=== PATIENT | male | born 1950 | race Caucasian/White ===

== ENCOUNTER 2017-09-25 22:09 | Inpatient (IN) | payer OTHER ==
[~2017-09-25] VITALS: Ht 185.4 cm; Wt 110.2 kg
[2017-09-25 23:13] LABS: BASOPHIL % 0.2 % (0-2); PLATELET COUNT 236 x10^3mcL (130-400); RED CELL DISTRIBUTION WIDTH 14.4 % (11.5-14.5)
[2017-09-25 23:21] LABS: CALCIUM 8.6 mg/dL (8.5-10.1); CARBON DIOXIDE 31.1 mmol/L (21-32); CHLORIDE SERUM 103 mmol/L (98-107); CREATININE SERUM 1.1 mg/dL (0.7-1.3); GLUCOSE SERUM 170 mg/dL (74-106); POTASSIUM SERUM 3.3 mmol/L (3.5-5.1); SODIUM SERUM 140 mmol/L (136-145)
[2017-09-25 23:28] LABS: ALKALINE PHOSPHATASE 129 U/L (46-116); ALT/SGPT 19 U/L (16-63); AST/SGOT 11 U/L (15-37); BILIRUBIN TOTAL 0.3 mg/dL (0.20-1.00); TOTAL PROTEIN, SERUM 7.1 g/dL (6.4-8.2)
[2017-09-25 23:29] LABS: ALBUMIN 3.1 g/dL (3.4-5.0)
[2017-09-26 03:51] VITALS: BP 131/71
[2017-09-26 04:06] LABS: CHOLESTEROL/HDL RATIO 3.3; MAGNESIUM 2.2 mg/dL (1.8-2.4)
[2017-09-26 06:04] VITALS: BP 154/73
[2017-09-26 07:17] LABS: AMPHETAMINE QUAL UR NONE DETECTED (NEG <=1000)
[2017-09-26 07:30] LABS: UA SPECIFIC GRAVITY >=1.030 (1.005-1.035); microscopic required? YES; urine erythrocyte 3+ (NEGATIVE)
[2017-09-26 08:41] VITALS: BP 152/61
[2017-09-26 14:26] VITALS: BP 133/75
[2017-09-26 16:55] VITALS: BP 139/71
[2017-09-26 21:27] VITALS: BP 138/69
[2017-09-27 03:54] LABS: BASOPHIL % 0.3 % (0-2); PLATELET COUNT 213 x10^3mcL (130-400); RED CELL DISTRIBUTION WIDTH 14.3 % (11.5-14.5)
[2017-09-27 04:32] LABS: ALKALINE PHOSPHATASE 113 U/L (46-116); ALT/SGPT 15 U/L (16-63); AST/SGOT 11 U/L (15-37); BILIRUBIN TOTAL 0.16 mg/dL (0.20-1.00); CALCIUM 8.6 mg/dL (8.5-10.1); CARBON DIOXIDE 28.5 mmol/L (21-32); CHLORIDE SERUM 108 mmol/L (98-107); CREATININE SERUM 0.8 mg/dL (0.7-1.3); GFR1 > 60 mL/min; GLUCOSE SERUM 103 mg/dL (74-106); POTASSIUM SERUM 3.9 mmol/L (3.5-5.1); SODIUM SERUM 143 mmol/L (136-145); TOTAL PROTEIN, SERUM 6.6 g/dL (6.4-8.2)
[2017-09-27 04:33] LABS: ALBUMIN 2.7 g/dL (3.4-5.0)
[2017-09-27 05:44] VITALS: BP 144/74
[2017-09-27 05:51] LABS: ERYTHROCYTE SED RATE 36 mm/hr (0-20)
[2017-09-27 19:00] VITALS: BP 157/65
[2017-09-27 21:03] VITALS: BP 149/67
[2017-09-28] VITALS (7 sets, daily range): BP systolic 135–179; BP diastolic 58–89
[2017-09-28 04:24] LABS: RAPID PLASMA REAGIN Non Reactive (Non Reactive)
[2017-09-28 09:14] LABS: RHEUMATOID ARTHRITIS FACTOR <10.0 IU/mL (0.0-13.9)
[2017-09-29 04:52] VITALS: BP 145/92
[2017-09-29 09:44] VITALS: BP 157/79
[2017-09-29 12:01] VITALS: BP 157/79
[2017-09-29 14:10] VITALS: BP 153/77
== END 2017-09-29 15:20 | disposition short-term general hospital (02) | DRG 303 ==
LOC: ED 22:09 → EDBD 22:09 → ED 22:09 → DU 09-26 02:14
PROVIDERS: Emergency Medicine; ADMIT Internal Medicine
DX: I25.119 Atherosclerotic heart disease of native coronary artery with unspecified angina pectoris (principal); I10 Essential (primary) hypertension; Z86.73 Personal history of transient ischemic attack (TIA), and cerebral infarction without residual deficits; Z85.46 Personal history of malignant neoplasm of prostate
CPT/HCPCS: 83880; 86431; A9500; J1644; J2785; J7030; Q0092

== ENCOUNTER 2020-07-13 19:34 | Inpatient (IN) | payer OTHER, SELFPAY ==
[~2020-07-13] VITALS: Ht 185.4 cm; Wt 103.0 kg
--- NOTE | 2020-07-13 19:52 | NUR ---
PT BIB AMBULANCE WITH X2 CIM GUARDS AT BEDSIDE. PER PATIENT INSURANCE CLERK, REPORTS PT HAD SOB ON EXERSTION THIS AFTERNOON AND WAS TESTED POSITIVE FOR COVID ON 07/10/20. PT A/O X4, VERBALLY RESPONSIVE. NO ACUTE DISTRESS NOTED. PT DENIES HAVING PAIN AT THIS TIME. BREATHING EVEN AND UNLABORED. FULL CM AND O2 MONITOR IN PLACE. AWAITING MSE. CIM GUARDS AT BEDSIDE. SAFETY MEASURES IN PLACE. WILL CONTINUE TO MONITOR.
[2020-07-13 20:29] LABS: BASOPHIL % 0.1 % (0-2); PLATELET COUNT 218 x10^3mcL (130-400)
[2020-07-13 20:32] LABS: RED CELL DISTRIBUTION WIDTH 18.3 % (11.5-14.5)
[2020-07-13 20:48] LABS: BILIRUBIN TOTAL 0.44 mg/dL (0.20-1.00); CALCIUM 7.7 mg/dL (8.5-10.1); CARBON DIOXIDE 21.3 mmol/L (21-32); CREATININE SERUM 1.9 mg/dL (0.7-1.3); POTASSIUM SERUM 5.1 mmol/L (3.5-5.1); TOTAL PROTEIN, SERUM 6.9 g/dL (6.4-8.2)
[2020-07-13 20:55] LABS: ALBUMIN 2.6 g/dL (3.4-5.0)
[2020-07-13 21:05] LABS: C REACTIVE PROTEIN 8.2 mg/dL (<=0.9)
--- NOTE | 2020-07-13 21:40 | NUR ---
PT A/O X4 IN [facility] [place] CIM GUARDS AT BEDSIDE. NO ACUTE DISTRESS NOTED. BREATHING EVEN AND UNLABORED. PT DENIES PAIN AT THIS TIME. FULL CM AND O2 MONITOR IN PLACE. PT SPEAKING FULL CLEAR SENTENCES. CALL LIGHT WITHIN REACH. WILL CONTINUE TO MONITOR.
[2020-07-13] MEDS ORDERED: VITB12I PO (22:11)
[2020-07-13] MEDS ORDERED: VERAPAMIL HCL180 M1 PO (22:12)
[2020-07-13] MEDS ORDERED: DOCUSATE SODIU100 MG PO (22:12)
[2020-07-13] MEDS ORDERED: FERROCITE324 MG PO (22:13)
[2020-07-13] MEDS ORDERED: LISINOPRIL40 MG PO (22:14)
[2020-07-13] MEDS ORDERED: PANTOPRAZOLE SO40 M1 PO (22:14)
[2020-07-13] MEDS ORDERED: LIPITOR40 MG PO (22:15)
[2020-07-13] MEDS ORDERED: COREG25 M1 PO (22:15)
[2020-07-13] MEDS ORDERED: QUALITY CHOICE650 M1 PO (22:16)
[2020-07-13] MEDS ORDERED: ALD25 PO (22:16)
[2020-07-13] MEDS ORDERED: DECADRON6 MG PO (22:16)
[2020-07-13] MEDS ORDERED: ASPIRIN FOR CHI81 M1 PO (22:17)
[2020-07-13] MEDS ORDERED: INSULIN SYRING1 EA29 SQ (22:17)
[2020-07-13 22:24] VITALS: BP 136/40
--- NOTE | 2020-07-13 22:37 | NUR ---
REPORT CALLED TO BELTRAN ESPARZA AT EXT [id number].
--- NOTE | 2020-07-13 22:58 | NUR ---
PT RESTING IN RTRYON, A/O X4. NO ACUTE DISRESS NOTED. X2 CIM GUARDS AT BEDSIDE. BREATHING EVEN AND UNLABORED, CONTINUES ON 3LPM O2 VIA N/C WITH NO SOB. PT DENIES HAVING PAIN AT THIS TIME. CM AND O2 MONITOR IN PLACE. PT TRANSFERED VIA [facility] TO ROOM 226B WITH TRANSPORT CM IN PLACE. PT ACCOMPANIED BY STEFAN ESPARZA AND RAH HWANG. BELTRAN ESPARZA TO ASSUME CARE OF PT AT THIS TIME.
--- NOTE | 2020-07-13 23:00 | NUR ---
RECEIVED PT FROM ED [facility] [employer], CAME IN DUE TO SOB. AAOX4. DENIES HEADACHE/DIZZINESS. ABLE TO FOLLOW COMMANDS. SOB NOTED, O2 SAT=92% ON 5LPM/NC. DENIES COUGH. LUNG SOUNDS DIMINISHED ON AUSCULTATION. DENIES CHEST PAIN/PRESSURE, SB W/ MILD ST DEPRESSION. NO EDEMA NOTED. PULSES ARE PALPABLE. DENIES NUMBNESS/TINGLING SENSATION. DENIES ABDOMINAL DISCOMFORT. ABDOMEN IS SOFT. LAST BM WAS 2 DAYS AGO. VOIDS. IV SITE PATENT AND INTACT. SIDE RAILS UPX2. CALL LIGHT ON REACH. PRIMARY NURSE BELTRAN AT BEDSIDE FOR CONTINUITY OF CARE
[2020-07-13 23:21] VITALS: BP 168/44
[2020-07-13 23:53] VITALS: BP 138/40
[2020-07-14] VITALS (7 sets, daily range): BP systolic 131–168; BP diastolic 44–52
--- NOTE | 2020-07-14 00:27 | NUR ---
DR CUI MADE AWARE PATIENT HAS A COPY OF POLST IN THE CHART STATING HE IS A DNR COMFORT MEASURES ONLY, PER DR CUI OKAY TO CHANGE CODE STATUS TO DNR.
--- NOTE | 2020-07-14 00:32 | NUR ---
PATIENT DENIES PAIN. PATIENT ON NC AT 5L/MIN, NO SOB NOTED, O2SAT OF 92% NO SOB NOTED. ALL PRECAUTIONS IN PLACE. GUARDS AT DOOR. WILL MONITOR.
--- NOTE | 2020-07-14 00:52 | NUR ---
RECEIVED A CALL FROM DR FLETCHER, UPDATED ON PATIENTS CONDITION. NEW ORDERS RECEIVED AND CARRIED OUT.
[2020-07-14 02:26] LABS: CHOLESTEROL/HDL RATIO 5.2
--- NOTE | 2020-07-14 05:48 | NUR ---
PATIENT SLEPT MOST OF THE NIGHT WITH NO ACUTE DISTRESS. PATIENT CONTINUE TO BE ON NC 5L/MIN WITH O2SAT OF 94% NO SOB NOTED. PATIENT DENIES CHEST PAIN/PRESSURE. IV PATENT, FLUSHED WELL. PATIENT ABLE TO TURN AND REPOSITION SELF. UNABLE TO COLLECT URINE SAMPLE AT THIS TIME PATIENT VERBALIZED UNDERSTANDING OF NEED TO USE URINAL TO OBTAIN SAMPLE FOR UA/UDS/UCX. PATIENT EDUCATION PROVIDED REGARDING CONVALESCENT PLASMA ORDERED AND AGREES TO TREATMENT, CONSENT SIGNED BY PATIENT, ALL QUESTIONS ADDRESSED. ALL NEEDS MET, ALL SAFETY PRECAUTIONS IN PLACE. MEDICATED PER EMAR. GUARD AT DOOR. WILL CONTINUE TO MONITOR.
--- NOTE | 2020-07-14 07:11 | NUR ---
PATIENT IN NO ACUTE DISTRESS. ENDORSED CARE TO PORSHA ESPARZA, ALL QUESTIONS ADDRESSED.
[2020-07-14 07:22] LABS: CALCIUM 8.1 mg/dL (8.5-10.1); CARBON DIOXIDE 19.1 mmol/L (21-32); CREATININE SERUM 1.7 mg/dL (0.7-1.3); POTASSIUM SERUM 5.4 mmol/L (3.5-5.1)
--- NOTE | 2020-07-14 07:45 | NUR ---
RECIEVED PT FROM ORTHO ASSISTANT NURSE. PT SLEEPING, AROUSABLE TO VOICE. A/O X4, CALM AND COOPERATIVE. TELE #9, BRADYCARDIC, HR:50. PT ON 5L NC, BREATHING EVEN/UNLABORED, O2 SAT 99%. PT REPORTS NO SOB OR PAIN AT THIS TIME. IV TO RAC PATENT, DRESSING CDI. WILL CONT TO MONITOR.
[2020-07-14 08:00] LABS: PLATELET COUNT 199 x10^3mcL (130-400)
[2020-07-14 08:28] LABS: BASOPHIL % 0 % (0-2); RED CELL DISTRIBUTION WIDTH 18.2 % (11.5-14.5)
--- NOTE | 2020-07-14 09:14 | NUR ---
PT SLEEPING, AROUSABLE TO VOICE. PASSED MORNING MEDICATIONS, TOLERATED WELL. PT ON 5 L NC, BREATHING EVEN/UNLABORED. 02 SAT 98%. PT ENCOURAGED TO DRINK MORE WATER, AWARE OF NEED TO COLLECT URINE FOR URINE TESTS. ALL NEEDS MET. WILL CONT TO MONITOR.
--- NOTE | 2020-07-14 09:38 | NUR ---
CALLED BLOOD BANK REGARDING ORDERED 1 UNIT OF CONVALESCENT PLASMA. PER BLOOD BANK, WILL CALL BACK WHEN THE 1 UNIT IS READY FOR PICKUP. AWAITING CALL BACK.
--- NOTE | 2020-07-14 11:06 | NUR ---
PT DESAT TO 81%, NASAL CANNULA WAS NOT ON PROPERLY. ENCOURAGED PT TO CHECK IF NASAL CANNULA IS IN PLACE OFTEN. PT 02 SAT IS NOW 90%, BREATHING EVEN/UNLABORED, ON 5L NC. PT REPORTS NO PAIN AT THIS TIME. ALL NEEDS MET. GUARDS AT DOOR. WILL CONT TO MONITOR.
--- NOTE | 2020-07-14 12:01 | NUR ---
COLLECTED URINE SPECIMEN FOR URINE TESTS. SPECIMEN DROPPED OFF IN LAB BIN.
[2020-07-14 12:12] LABS: ALBUMIN 2.6 g/dL (3.4-5.0); BILIRUBIN DIRECT 0.08 mg/dL (0.0-0.2); BILIRUBIN TOTAL 0.33 mg/dL (0.20-1.00); TOTAL PROTEIN, SERUM 7.1 g/dL (6.4-8.2)
--- NOTE | 2020-07-14 12:32 | NUR ---
SPOKE WITH DR. CUI REGARDING PT'S POTASSIUM LEVEL OF 5.4. PER DR. CUI, OKAY TO ORDER 1 PACKET OF LOKELMA PO ONCE. WILL INPUT ORDERS ACCORDINGLY.
[2020-07-14 12:42] LABS: UA SPECIFIC GRAVITY 1.025 (1.005-1.035); microscopic required? YES; urine erythrocyte TRACE (NEGATIVE)
--- NOTE | 2020-07-14 12:57 | NUR ---
ADMINISTERED LOKELMA, PT TOLERATED WELL. PT ON 5L NC, OS SAT 95%, BREATHING EVEN/UNLABORED, IN NO ACUTE RESP DISTRESS. SPOKE WITH PHARMACIST SHIVANI FULTONDESIVIR TO BE STARTED AT 1400. WILL CONT TO MONITOR.
[2020-07-14 13:12] LABS: AMPHETAMINE QUAL UR NONE DETECTED (See below)
--- NOTE | 2020-07-14 14:30 | NUR ---
1ST DOSE OF REMDESIVIR COMPLETE. PT ON 5L NC, BREATHING EVEN/UNLABORED. PT REPORTS NO PAIN OR SOB. ALL NEEDS MET. WILL CONT TO MONITOR.
--- NOTE | 2020-07-14 16:21 | NUR ---
CONVALESCENT PLASMA TRANSFUSION INITIATED AT 1550. 2 RN VERIFICATION DONE AT BEDSIDE WITH ANTOINETTE ESPARZA. PRE-TRANSFUSION VITAL SIGNS ARE T:97.4, BP:150/49, P:60, RR:20, 02:93%. PT INSTRUCTED TO LET NURSE KNOW IMMEDIATELY IF FEELING ANY CHILLS, ITCHING, FEVER, SOB, OR BODY ACHES. INFUSION RAN AT 70 ML/HR. 15 MIN VITAL SIGNS TAKEN AT 1605, T: 97.1, BP:145/47, P:58, RR: 20, O2:93%. PT EXHIBITED NO SIGNS/SYMPTOMS OF TRANSFUSION REACTION. INFUSION INCREASED TO 150ML/HR. ENCOURAGED PT TO USE CALL LIGHT WHEN NURSE IS NEEDED, PT EXPRESSED UNDERSTANDING. GUARDS AT DOOR. WILL CONT TO MONITOR.
--- NOTE | 2020-07-14 17:29 | NUR ---
1 UNIT CONVALESCENT PLASMA INFUSION COMPLETE. VSS, PT EXHIBITED NO SIGNS OF TRANSFUSION REACTION. PT ON 5 L NC, BREATHING EVEN/UNLABORED, O2 SAT 93%. PT REPORTS NO PAIN OR SOB AT THIS TIME. ALL NEEDS MET. WILL CONT TO MONITOR.
--- NOTE | 2020-07-14 18:45 | NUR ---
PT DESAT TO 87%. PT STATES THAT HE WAS EATING, ENCOURAGED PT TO KEEP NASAL CANNULA ON WHILE EATING AND TO TAKE DEEP BREATHS THROUGH THE NOSE. PT ON 5 L NC, BREATHING EVEN/UNLABORED. PT REPORTS NO PAIN OR SOB AT THIS TIME. IV TO RAC PATENT, SALINE LOCKED, DRESSING CDI. ALL QUESTIONS/CONCERNS ADDRESSED. WILL ENDORSE TO AUTOMOBILE SALESMAN NURSE.
--- NOTE | 2020-07-14 20:11 | NUR ---
PT RECIEVED AAO REG RESP NO SOB ON 5L N/C SAT 95%,HOB,V/S STABLE,ABDO IS SOFT WITH ACTIVE BOWEL SOUNDS,PT HAS HL TO THE RT HAND WITH THE SITE PATENT AND INTACT,HOB,KEPT CLEAN AND DRY TO TOUCH,BED IN THE LOW POSITION AND LOCKED AND MADE COMFORTABLE IN BED AND WILL CONTINUE TO MONITOR.
--- NOTE | 2020-07-15 03:20 | NUR ---
PT SLEEPING SOUNDLY AND WILL CONTINUE TO MONITOR.
[2020-07-15 04:26] VITALS: BP 106/55
--- NOTE | 2020-07-15 06:47 | NUR ---
[facility],WILL CONTINUE TO MONITOR.
[2020-07-15 07:04] LABS: BASOPHIL % 0.1 % (0-2)
[2020-07-15 07:13] LABS: RED CELL DISTRIBUTION WIDTH 18.6 % (11.5-14.5)
[2020-07-15 07:14] LABS: PLATELET COUNT 257 x10^3mcL (130-400)
[2020-07-15 07:34] LABS: CALCIUM 8.3 mg/dL (8.5-10.1); CREATININE SERUM 1.6 mg/dL (0.7-1.3); POTASSIUM SERUM 5.1 mmol/L (3.5-5.1)
--- NOTE | 2020-07-15 07:45 | NUR ---
RECEIVED PATIENT RESTING IN BED, NO ACUTE DISTRESS NOTED. PATIENT AAOX4, DENIES HEADACHE. TELE MONITOR IN PLACE, DENIES CP. PULSES PALPABLE X4, DENIES N/V. LUNG SOUNDS DIMINISHED TO WANDA BASES, DENIES SOB ON 5L NC. PATIENT VOIDS FREELY USING URINAL. IV TO RAC SALINE LOCK, CDI&PATENT. CIM ZHOU OUTSIDE OF ROOM FOR SAFETY PRECAUTION. CALL LIGHT WITHIN REACH, BED IN LOW POSITION, WILL CONTINUE TO MONITOR.
--- NOTE | 2020-07-15 07:57 | NUR ---
PATIENTS STARTED TO DESATURATE TO THE LOW 80s, PATIENT BREATHING LABORED. PATIENT REPORTS SOB, INCREASED PATIENTS OXYGEN TO 6L NC. PATIENT OXYGEN WAS 88%. ATTEMPTED TO EDUCATED PATIENT ON PRONING SELF THIS WILL INCREASE OXYGENATION. PATIENT REFUSED AND STATED HE DIDNT WANT TOO, RT WAS NOTIFIED FOR BREATHING TREATMENT. WILL CONTINUE TO MONITOR.
--- NOTE | 2020-07-15 08:14 | NUR ---
RT AT BEDSIDE, PATIENT RECEIVED BREATHING TREATMENT. PATIENT WAS SWITCHED TO OXYMIZER 10L SATING AT 96-97%. PATIENT REPORTS FEELING BETTER AFTER BREATHING TREATMENT, WILL CONTINUE TO MONITOR.
[2020-07-15 08:27] VITALS: BP 169/53
--- NOTE | 2020-07-15 10:40 | NUR ---
DR. CUI MADE AWARE PATIENTS BP WAS 169/53, DR. CUI GAVE TORB TO CONTINUE LISINOPRIL 40MG PO DAILY, COREG 50MG PO DAILY, SPIROLACTONE 50MG PO DAILY, VERAPAMIL 180MG PO DAILY. WILL CARRY OUT ORDERS AT THIS TIME.
[2020-07-15 11:48] LABS: ALT/SGPT 29 U/L (16-63); AST/SGOT 29 U/L (15-37)
[2020-07-15 11:54] VITALS: BP 126/40
--- NOTE | 2020-07-15 13:48 | NUR ---
DR. CUI MADE AWARE PATIENT K WAS 5.1, PER DR. BASILIA LARSON TO CONTINUE SPIROLACTONE PO 50MG DAILY. PHARMACIST MADE AWARE.
--- NOTE | 2020-07-15 16:27 | NUR ---
PATIENT RESTING IN BED, NO ACUTE DISTRESS NOTED. PATIENT DENIES SOB, BREATHING E/U ON 10L OXYMIZER. PATIENT REPORTS THE OXYMIZER HAS HELPED. PATIENT DENIES PAIN AT THIS TIME. ALL NEEDS MET, CALL LIGHT WITHIN REACH, BED IN LOW POSITION. WILL CONTINUE TO MONITOR.
[2020-07-15 17:04] VITALS: BP 111/33
--- NOTE | 2020-07-15 19:25 | NUR ---
ALL CARE ENDORSED TO NIGHT RN.
--- NOTE | 2020-07-15 20:00 | NUR ---
RECEIVED PT FROM DAY SHIFT RN. PT AOX4 ON 9L OXYGEN VIA OXIMIZER. PT DENIES ANY PAIN AT THIS TIME. IVL TO RIGHT AC IS CLEAN AND INTACT. CALL LIGHT IS WITHIN REACH AND PT ABLE TO USE. BED IS IN LOW POSITION. NO ACUTE DISTRESS NOTED. PT ENCOURAGED TO CALL FOR ASSISTANCE. WILL MEDICATE PER EMAR AND MONITOR PT THROUGHOUT THE SHIFT.
[2020-07-15 20:53] VITALS: BP 116/49
[2020-07-15 22:20] VITALS: BP 117/34
[2020-07-16 05:42] VITALS: BP 128/43
--- NOTE | 2020-07-16 07:01 | NUR ---
PATIENT SLEEPING MOST OF THE NIGHT WITH NO ACUTE DISTRESS NOTED. HR IN THE 40s ALL NIGHT AND PT IS ASYMPTOMATIC. WILL PASS REPORT TO INCOMING DAYS SHIFT RN FOR CONTINUITY OF CARE.
--- NOTE | 2020-07-16 07:34 | NUR ---
RECEIVED PATIENT RESTING IN BED, NO ACUTE DISTRESS NOTED. PATIENT AAOX4, DENIES HEADACHE. TELE MONITOR IN PLACE, DENIES CHEST PAIN. PULSES PALPABLEX4, NO EDEMA NOTED. PATIENT DENIES SOB, BREATHING E/U ON 9L OXYMIZER. PATIENT VOIDS FREELY USING URINAL. IV TO RAC SALINE LOCK, CDI&PATENT. [facility] Z[facility] X2 FOR SAFETY PRECAUTION. CALL LIGHT WITHIN REACH, BED IN LOW POSITION, WILL CONTINUE TO MONITOR.
[2020-07-16 07:38] LABS: BASOPHIL % 0 % (0-2); RED CELL DISTRIBUTION WIDTH 18.1 % (11.5-14.5)
[2020-07-16 08:08] LABS: BILIRUBIN TOTAL 0.35 mg/dL (0.20-1.00); CALCIUM 7.9 mg/dL (8.5-10.1); CARBON DIOXIDE 21.7 mmol/L (21-32); CREATININE SERUM 1.7 mg/dL (0.7-1.3); POTASSIUM SERUM 4.6 mmol/L (3.5-5.1); TOTAL PROTEIN, SERUM 7.6 g/dL (6.4-8.2)
[2020-07-16 08:13] LABS: ALBUMIN 2.5 g/dL (3.4-5.0)
[2020-07-16 08:15] LABS: MAGNESIUM 3.1 mg/dL (1.8-2.4); PHOSPHOROUS 5.1 mg/dL (2.5-4.9)
[2020-07-16 08:44] VITALS: BP 125/80
--- NOTE | 2020-07-16 11:55 | NUR ---
DR. CUI AWARE PATIENT BUN/CR WAS 83.0/1.7. NO FURTHER ORDERS AT THIS TIME.
[2020-07-16 12:05] VITALS: BP 136/40
[2020-07-16 12:12] LABS: PLATELET COUNT 248 x10^3mcL (130-400)
--- NOTE | 2020-07-16 14:00 | NUR ---
REMDESIVIR IV GIVEN AT THIS TIME, NO ADVERSE REACTION NOTED. PATIENT DENIES SOB, BREATHING E/U ON 9L OXYMIZER. ALL NEEDS MET AT THIS TIME, CALL LIGHT WITHIN REACH, BED IN LOW POSITION, WILL CONTINUE TO MONITOR.
[2020-07-16 16:34] VITALS: BP 126/37
--- NOTE | 2020-07-16 17:53 | NUR ---
DR. MARIN AT BEDSIDE, SPOKE WITH PATIENT REGARDING PLAN OF CARE. PATIENT VERBALIZED UNDERSTANDING, NO ACUTE RESPIRATORY DISTRESS, PATIENT DENIES SOB. ALL NEEDS MET AT THIS TIME, CALL LIGHT WITHIN REACH, BED IN LOW POSITION. WILL CONTINUE TO MONITOR.
--- NOTE | 2020-07-16 19:15 | NUR ---
PATIENT IS STABLE, NO ACUTE CHANGES NOTED THROUGHOUT SHIFT. ALL CARE ENDORSED TO NIGHT RN, ALL QUESTIONS AND CONCERNS ADDRESSED.
--- NOTE | 2020-07-16 19:59 | NUR ---
RECEIVED PT FROM DAY SHIFT RN. PT IS AOX4, ON 9L OXIMIZER AND SATING AT 97%. PT DENIES PAIN AT THIS TIME. CALL LIGHT IS WITHIN REACH AND PT ENCOURAGED TO CALL FOR ASSISTANCE. WILL ASSESS AND MONITOR THROUGHOUT THE SHIFT.
[2020-07-16 20:59] VITALS: BP 141/82
[2020-07-17 06:16] VITALS: BP 142/36
--- NOTE | 2020-07-17 06:51 | NUR ---
PT SLEEPING ALL NIGHT WITH NO COMPLAINTS. OXYGEN SATURATING BETWEEN 90-94% ON 6L OXIMIZER. WILL PASS REPORT TO INCOMING DAY SHIFT RN FOR CONTINUITY OF CRAE.
[2020-07-17 06:54] LABS: BASOPHIL % 0.1 % (0-2); PLATELET COUNT 256 x10^3mcL (130-400)
[2020-07-17 07:01] LABS: RED CELL DISTRIBUTION WIDTH 18.4 % (11.5-14.5)
[2020-07-17 07:38] LABS: BILIRUBIN TOTAL 0.6 mg/dL (0.20-1.00); CARBON DIOXIDE 21.8 mmol/L (21-32); CREATININE SERUM 1.6 mg/dL (0.7-1.3); POTASSIUM SERUM 4.7 mmol/L (3.5-5.1)
[2020-07-17 07:53] LABS: ALBUMIN 2.4 g/dL (3.4-5.0)
[2020-07-17 08:20] VITALS: BP 136/61
[2020-07-17 12:05] VITALS: BP 148/59
--- NOTE | 2020-07-17 15:55 | NUR ---
Initial Nutrition Assessment: 226B JING, DENIS 69M MR Dx: COVID, PNA, NSTEMI PMHx: HTN, CVA PSHx: none noted Labs: (07/17) WBC 15.6H, H/H 12.9/39L, BUN 88H, Cr 1.6H, Albumin 2.4L, (07/16) Phosphorus 5.1H, Mg 3.1H, (07/13) CRP 8.2H, Trig 212H, HDL 32L Meds: Isordil, Apresoline, Lipitor, Remdesevir, Lovenox, Colace, Aspirin, Decadron, Coreg Diet: Cardiac diet PO intake since admission: (07/17) B:80%, L: 60%, (07/16) B: 100% (07/15) L: 60%, (07/14) B: 100%; av% Ht: 185.42cm/73in Wt: 102.965kg/227lbs BMI: 29.9 Bed scale: not accessible IBW: 83.64kg/184lbs %IBW: 123.11% UBW: unknown Age: 69 Food Allergies: unknown Edema: none noted Last BM: 07/15 Skin: skin intact, no open wound noted Alex: 21 Per H and P (07/13) pt is a 69 yo male h/o CVA, HTN prostate CA, [facility] resident who was exposed to cov 19, tested positive 3 days ago. He started having sob since then, progressively worsen during the period. He was taken to the ed, sob, positive troponin and with b infiltrates on cxr. He was admitted to [facility], isolation. Pt was admitted with dx: Hypoxia, CAD, COVID 19, PNA, positive troponin, HTN, h/o CVA, prostate CA, PARTHA/CKD, Obstructive uropathy RD Note (07/17/2020) Per progress note (07/16), pt had no new complaints and remained on 10L oxymizer. D/t pt being in isolation, and no bedside phone available, assessment was completed relied on medical records and RN. Per RN, pt had 80% breakfast and 60% lunch today. Pt did not have c/o chewing/swallowing difficulty or GI distress. No BM was reported. Problem with: N/V/D/C: none noted Problems with: Chewing: Swallowing: none per RN Current appetite: Fair per RN Recent wt change: unknown %wt change: unknown Height: unknown Vitamin/Supplement use: unknown Special diet at home: unknown Physical activity: unknown Nutrition education given (specify specific nutrition education and handout given): not given at this time Food-drug interactions? Education given? n/a Estimated Nutritional Needs Based on ideal body weight (84kg) Energy: 2289-6419 kcal/day (30-35 kcal/kg for respiratory distress, viral infection) Protein: 100-126 g/day (1.2-1.5 g/kg for respiratory distress, viral infection) Fluid: 9581-1305 mL/day (1 mL/kcal) Nutrition Diagnosis: 1. Increased energy and protein needs r/t viral infection a/e/b pt was admitted with respiratory distress and COVID. Intervention 1. Continue with cardiac diet as tolerate 2. Recommend ensure high protein BID to aid PO intake and to meet kcal and protein needs. It will provide additional 320kcal and 32g protein. Monitor/Evaluate Goal: PO intake at least 75% of estimated needs Monitor: PO intake, Labs, GI function, ONS intake F/U in 3-5 days as moderate risk 07/20-7
[2020-07-17 16:27] VITALS: BP 129/35
--- NOTE | 2020-07-17 17:00 | NUR ---
PATIENT AOX4, REMAIN AFEBRILE, HR COULD GO DOWN TO THE 50'S, HELD MORNING CARVEDILOL. PATINET IS ON 6 L OXYGENT VIA NASAL CANULA, DENIES SHORTNESS OR BREATH OR RESPIRATORY DISTRESS. IV REMDESIVIR DOSE 3 OF 4 GIVEN. WILL CONTINUE TO WEAN O2 AND MONITOR LABS.
[2020-07-17 20:00] VITALS: BP 146/36
--- NOTE | 2020-07-17 20:00 | NUR ---
20:00 Patient is AAO, follows commands well. Patient is an inmate, security guards are present. On 6liters oximizer. Sat wnl. Cardiac telemetry is showing NSR , rate 60. BP WDL. No complaints of pain. Abdomen is soft and non-distended. voiding QS.
--- NOTE | 2020-07-17 23:57 | NUR ---
23:55 Patient is resting well. No respiratory distress noted. No complaints of pain.
--- NOTE | 2020-07-18 04:59 | NUR ---
04:58 Patient has no respiratory distress. No complaints of pain.
[2020-07-18 05:26] VITALS: BP 150/36
--- NOTE | 2020-07-18 07:52 | NUR ---
RECIEVED PT FROM TUBE FITTER NURSE. PT RESTING IN HIGH-FOWLERS, A/O X4, CALM ADN COOPERATIVE. TELE #9, SR. PT ON 6 L OXYMIZER, O2 SAT 94%, BREATHING EVEN/UNLABORED. IN NO ACUTE RESP DISTRESS AT THIS TIME. PT REPORTS NO PAIN. IV TO R WRIST PULLED OUT, WILL INSERT NEW IV. WILL CONT TO MONITOR.
[2020-07-18 08:55] VITALS: BP 145/26
--- NOTE | 2020-07-18 09:59 | NUR ---
NEW IV INSERTED 22 G IN RA, PATENT, DRESSING CDI.
[2020-07-18 12:37] VITALS: BP 125/34
--- NOTE | 2020-07-18 14:21 | NUR ---
PT RESTING IN HIGH FOWLERS, SLEEPING, EASILY AROUSABLE TO VOICE, A/O X4. PT ON 10 L OXYMIZER, BREATHING EVEN/UNLABORED, IN NO ACUTE RESP DISTRESS. REMDESIVIR GIVEN. PT REPORTS NO PAIN AT THIS TIME. ALL NEEDS MET. WILL CONT TO MONITOR.
[2020-07-18 16:24] VITALS: BP 113/60
--- NOTE | 2020-07-18 17:58 | NUR ---
PT RESTING IN SEMI-FOWLERS, A/O X4, LETHARGIC. PT ON 10 L OXYMIZER, BREATHING EVEN/UNLABORED, IN NO ACUTE RESP DISTRES AT THIS TIME. IV TO RFA PATENT, DRESSING CDI. PT REPORTS NO PAIN AT THIS TIME. ALL NEEDS MET. GUARDS AT DOOR, WILL CONT TO MONITOR.
[2020-07-18 19:56] VITALS: BP 130/34
--- NOTE | 2020-07-18 20:00 | NUR ---
RECEIVED PT AA&O.SOMEWHAT QUIET. INMATE WITH OFFICERS NEAR BEDSIDE. OXYMIZER @10L. DESATS WHEN HE REMOVES IT INTO THE 80'S. OTHERWISE AROUND 94%.NO RESPIRATORY DISTRESS NOTED. USING URINAL. SHACKLED TO BED FROM LEFT ANKLE. SKIN CLEAR UNDER SHACKLE.ABLE TO TURN AND MOVE HIMSELF IN BED. NO C/O PAIN. IV TO TABITHA PATENT, AND SALINE LOCKED. BED LOW AND CALL LIGHT WITHIN REACH.
--- NOTE | 2020-07-19 01:33 | NUR ---
CHECKED ON PT. OXYGEN SAT WAS IN THE 80'S. PT HAD OXYMIZER OFF TO THE SIDE OF HIS FACE. INSTRUCTED HIM TO PLACE OXYMIZER IN CORRECTLY. O2 SAT WENT BACK UP TO 94%. NO RESPIRATORY DISTRESS NOTED. PT RESTING IN BED.
[2020-07-19 04:57] VITALS: BP 177/42
--- NOTE | 2020-07-19 05:13 | NUR ---
PT'S OXYGEN DESAT'S IN THE 80'S AT TIMES. CHECKED ON HIM AND HE WAS SLIGHTLY SOB SITTING UP IN BED. RT NOTIFIED. BUMPED HIS OXYMIZER UP TO 12L. SUSTAINING AROUND 90% O2.NO DISTRESS NOTED . PT IRRITABLE WHEN COMING IN AND OUT TO CHECK ON HIM. CALL LIGHT WITHIN REACH, BED IN LOWEST POSITION. INSTRUCTED TO USE HIS CALL LIGHT IF FEELING SOB OR RESPIRATORY DISTRESS. VERBALIZED UNDERSTANDING.
[2020-07-19 06:23] VITALS: BP 127/47
[2020-07-19 06:59] LABS: PLATELET COUNT 243 x10^3mcL (130-400)
[2020-07-19 07:24] LABS: CALCIUM 8.4 mg/dL (8.5-10.1); CARBON DIOXIDE 22.8 mmol/L (21-32); CREATININE SERUM 1.6 mg/dL (0.7-1.3); POTASSIUM SERUM 4.9 mmol/L (3.5-5.1)
[2020-07-19 07:28] LABS: BASOPHIL % 0 % (0-2); RED CELL DISTRIBUTION WIDTH 18.5 % (11.5-14.5)
--- NOTE | 2020-07-19 07:28 | NUR ---
REPORT TAKEN FROM TEST BORE HELPER NURSE AT STATION DUE TO COVID ISOLATION. PER REPORT PATIENT IS AWAKE AND ALERT AND IN NO ACUTE DISTRESS. ON 12 LITERS OXYMIZER AT THIS TIME WITH O2 SAT OF 97% AND HR OF 57. WILL CONTINUE TO MONITOR.
[2020-07-19 09:48] VITALS: BP 136/68
[2020-07-19 12:25] VITALS: BP 125/45
[2020-07-19 17:00] VITALS: BP 135/39
--- NOTE | 2020-07-19 19:13 | NUR ---
REPORT GIVEN TO NIP WRAPPER, CARE ENODRSED
--- NOTE | 2020-07-19 20:00 | NUR ---
RECEIVED PT AA&0.OXYMIZER 12L, SATURATION 94-97%. NO RESPIRATORY DISTRESS NOTED. IV PATENT AND SALINE LOCKED. INMATE, SHACKLES TO LEFT ANKLE AND OFFICERS CLOSE BY AT ALL TIMES. SKIN CLEAR. WATER GIVEN. NO DISTRESS NOTED.CALL LIGHT WITHIN REACH.
[2020-07-19 20:33] VITALS: BP 139/37
[2020-07-20 05:11] VITALS: BP 143/34
--- NOTE | 2020-07-20 06:49 | NUR ---
PT RESTING. CONTINUES ON THE OXYMIZER 12L. PT WOULD SHOW HE WAS DESATING IN THE 80'S AT TIMESAND WHEN CHECKED HAD REMOVED HIS OXYMIZER. COMPLIANT WHEN ASKED TO PLACE IT BACK ON AND O2 GOES UP TO 94-97%. NO RESPIRATORY DISTRESS NOTED WHILE LYING IN BED. NO C/O PAIN. WILL ENDORSE TO AM NURSE
[2020-07-20 07:11] LABS: CALCIUM 8.5 mg/dL (8.5-10.1); CARBON DIOXIDE 20.9 mmol/L (21-32); CREATININE SERUM 1.4 mg/dL (0.7-1.3); POTASSIUM SERUM 5.3 mmol/L (3.5-5.1)
[2020-07-20 07:15] LABS: BASOPHIL % 0.7 % (0-2); PLATELET COUNT 252 x10^3mcL (130-400); RED CELL DISTRIBUTION WIDTH 18.4 % (11.5-14.5)
--- NOTE | 2020-07-20 07:15 | NUR ---
RECEIVED PT FROM NIGHT RN. PT RESTING IN BED WITHOUT APPARENT DISTRESS. AAOX4, APPROPRIATE CONVERSATION W SPEECH CLEAR NOTED. DENIES GARY/DIZZINESS. RES EVEN AND SLIGHTLY LABORED. O2 SAT 98% ON 12 L OXYMIZER, DECREASED TO 10L AND O2 SATURATION SUSTAINED AT 96%. DENIES SOB. PRODUCTIVE COUGH NOTED. TELE MONITOR 9 SR, DENIES CP/PRESSURE. NO GI/ COMPLAINT. DENIES PAIN/DISCOMFORT AT THIS TIME. NO ACUTE DISTRESS NOTED. IV SITE TO TABITHA BARRETO W NO S/S OF INFILTRATION NOTED. SAFETY PRECAUTIONS IN PLACE.
[2020-07-20 08:30] VITALS: BP 123/35
--- NOTE | 2020-07-20 09:00 | NUR ---
RT INCREASED 02 TO 12L OXYMIZER. O2 SAT 88-89% ON 10 L AND PT C/O SOB PER RT. O2 SAT 94% ON 12L OXYMIZER
--- NOTE | 2020-07-20 12:48 | NUR ---
DR CUI MADE AWARE OF K+ LEVEL 5.3
[2020-07-20 13:00] VITALS: BP 132/36
[2020-07-20 14:00] VITALS: Ht 185.4 cm; Wt 103.0 kg
[2020-07-20 18:00] VITALS: BP 123/34
--- NOTE | 2020-07-20 18:47 | NUR ---
PT RESTING IN BED WITHOUT APPARENT DISTRESS. NO SIGNIFCANT CHANGES NOTED. RES E/U, DENIES SOB ON 12 L OXYMIZER. WILL ENDORSE TO NEXT SHIFT
[2020-07-20 20:37] VITALS: BP 147/33
--- NOTE | 2020-07-20 21:14 | NUR ---
Pt received in bed, sleeping On 12 L oxymizer, no signs of respiratory distress noted Condition fair Denied pain or discomfort
[2020-07-21] VITALS (7 sets, daily range): BP systolic 108–160; BP diastolic 34–72
--- NOTE | 2020-07-21 | NUR ---
Pt in bed sleeping No signs of distress All needs met
--- NOTE | 2020-07-21 06:07 | NUR ---
Pt slept overnight, condition fair All due care rendered, no signs of distress noted No SOB or respiratory distress Oxygen requirement unchanged, 12L via oxymizer Voided Officer watching pt in hallway, shackle to left foot
[2020-07-21 07:47] LABS: PLATELET COUNT 307 x10^3mcL (130-400)
[2020-07-21 07:55] LABS: CALCIUM 9.1 mg/dL (8.5-10.1); CARBON DIOXIDE 26.6 mmol/L (21-32); CREATININE SERUM 1.5 mg/dL (0.7-1.3)
[2020-07-21 07:59] LABS: POTASSIUM SERUM 5.7 mmol/L (3.5-5.1)
[2020-07-21 08:11] LABS: BASOPHIL % 0 % (0-2); RED CELL DISTRIBUTION WIDTH 18.3 % (11.5-14.5)
--- NOTE | 2020-07-21 11:08 | NUR ---
PATIENT IS LOCX4. STATED NO PAIN OR DISCOMFORT. NO SIGNS OF DISTRESS. WILL CONTINUE TO MONITOR.
--- NOTE | 2020-07-21 12:19 | NUR ---
PATIENTS O2 DROPPED TO 78% WENT TO CHEK IN ON THE PATIENT, PATIENT HAD GOTTEN UP TO USE URINAL.
--- NOTE | 2020-07-21 12:26 | NUR ---
RECHECKED O2 BACK TO 90% ON 12L
--- NOTE | 2020-07-21 12:53 | NUR ---
INFORMED DR CUI ABOUT PATIENTS LABS. SERUM POTASSIUM 5.7. BUN 101. CREATINE 1.5. WBC 16.0
--- NOTE | 2020-07-21 13:59 | NUR ---
LOKELMA SODIUM WAS GIVEN TO TREAT HIGH POTASSIUM PER MD ORDER.
--- NOTE | 2020-07-21 17:38 | NUR ---
PATIENTS O2 95, LAYING IN BED HIGH FOWLERS, NO SIGNS OF DISTRESS AT THIS MOMENT. 0/10 PAIN AND NO DISCOMFORT. ALL NEEDS ARE MET.
--- NOTE | 2020-07-21 20:30 | NUR ---
RECEIVED PT FROM DAY SHIFT NURSE, PT IS RESTING IN BED AWAKE AND ALERT. TELE 9, SR-SB. NO C/O CHEST PAIN/PRESSURE, DIZZINESS, GARY, N/V OR PALPITATIONS. PALPABLE PULSES, NO EDEMA NOTED. BREATHING IS EVEN AND UL ON 12L OXIMIZER, LUNG SOUNDS DIMINISHED BILATERAL BASES. NO SOB OR ACUTE RESPIRATORY DISTRESS NOTED. BOWEL SOUNDS ACTIVE X4, ABD IS SOFT AND ROUND, NO C/O PAIN TO PALPATION. GENERAL WEAKNESS NOTED. SKIN IS INTACT. IV TO TABITHA CDI AND PATENT, FLUSHING WELL. NO C/O PAIN OR DISCOMFORT AT THIS TIME. BED AT LOWEST POSITION. CALL LIGHT IS W/IN REACH. WILL CONTINUE TO MONITOR.
--- NOTE | 2020-07-22 00:19 | NUR ---
PT IS RESTING IN BED ASLEEP. NO S/SX OF PAIN OR DISCOMFORT NOTED. BREATHING IS EVEN AND UL ON 12 L OXIMIZER. NO SOB OR ACUTE RESPIRATORY DISTRESS AT THIS TIME. BED AT LOWEST POSITION. CALL LIGHT IS W/IN REACH. WILL CONTINUE TO MONITOR.
--- NOTE | 2020-07-22 01:42 | NUR ---
SPOKE TO DR. ROBERTSON REGARDING ELEVATED PHOS AND MG VALUES. PER DR. CUI, NNO AT THIS TIME AND CONTINUE TO MONITOR.
[2020-07-22 05:40] VITALS: BP 168/43
--- NOTE | 2020-07-22 06:15 | NUR ---
PT IS RESTING IN BED AWAKE AND ALERT. NO C/O PAIN OR DISCOMFORT THROUGHOUT SHIFT. BREATHING IS EVEN AND UL ON 12L OXIMIZER, NO SOB NOTED AT THIS TIME. REMAINS IN STABLE CONDITION. NO SIGNIFICANT CHANGES AT THIS TIME. BED IN LOWEST POSITION. CALL LIGHT IS W/IN REACH. WILL ENDORSE TO DAY SHIFT NURSE.
--- NOTE | 2020-07-22 07:20 | NUR ---
SEEN AOX4, NOT IN DISTRESS, TELE 9, SB, PALPABLE PULSES, NO EDEMA, DIMINISHED BLF, 12LPM VIA OXYMIZER , O2 SAT 98%, +BS, VOIDS FREELY , SKIN DRY AND INTACT, IV INTACT AND PATENT, TABITHA, NO REDNESS OR SWELLING, CALL LIGHT WIHTIN REACH, BED AT LOWEST POSITION, SIDE RAILS UP
[2020-07-22 07:29] LABS: BILIRUBIN TOTAL 0.48 mg/dL (0.20-1.00); CALCIUM 8.4 mg/dL (8.5-10.1); CARBON DIOXIDE 26.9 mmol/L (21-32); CREATININE SERUM 1.4 mg/dL (0.7-1.3); POTASSIUM SERUM 5.5 mmol/L (3.5-5.1); TOTAL PROTEIN, SERUM 7.1 g/dL (6.4-8.2)
[2020-07-22 07:30] LABS: ALBUMIN 2.2 g/dL (3.4-5.0)
[2020-07-22 07:36] LABS: BASOPHIL % 0 % (0-2); PLATELET COUNT 304 x10^3mcL (130-400); RED CELL DISTRIBUTION WIDTH 18.1 % (11.5-14.5)
--- NOTE | 2020-07-22 08:18 | NUR ---
SPOKE WITH BARBARA JERRY REGARDING LOVENOX AND FLUDROCORTISONE NOT IN PYXIS. PER CLARITZA, HE WILL BRING IT UP TO STATION.
[2020-07-22 08:32] VITALS: BP 126/41
--- NOTE | 2020-07-22 09:00 | NUR ---
MEDICATIONS GIVEN PER EMAR. CARVEDILOL ON HOLD. HR [id number].
[2020-07-22 12:29] VITALS: BP 137/37
--- NOTE | 2020-07-22 12:54 | NUR ---
DR CUI MADE AWARE OF K 5.5 RESULTS. ORDERS RECEIVED.
--- NOTE | 2020-07-22 14:23 | NUR ---
BP 153/51. MEDICATIONS GIVEN PER EMAR. K 5.5. LOKELMA PO GIVEN
--- NOTE | 2020-07-22 15:44 | NUR ---
Follow-up Nutrition Assessment: 226B JING, DENIS 69M Dx: COVID, PNA, NSTEMI PMHx: HTN, CVA PSHx: none noted Labs: (07/22) WBC 13.1H, HCT 41L, K 5.5H, BUN 96H, Cr 1.4H, albumin 2.2L *phosphorus WNL (07/17) WBC 15.6H, H/H 12.9/39L, BUN 88H, Cr 1.6H, Albumin 2.4L, (07/16) Phosphorus 5.1H, Mg 3.1H, (07/13) CRP 8.2H, Trig 212H, HDL 32L Meds: Coreg, Colace, Decadron, Aspirin, Lovenox, Apresoline, Isordil, Lipitor, Diet: Cardiac diet PO Intake: 40-95% x 12 meals with average PO intake of 62% Wt: 102.965kg/227lbs BMI: 29.9 Edema: No edema noted Last BM: 07/20 Skin: Dry and intact, no open wound noted Alex: [address] note (07/17), Per progress note (07/16), pt had no new complaints and remained on 10L oxymizer. D/t pt being in isolation, and no bedside phone available, assessment was completed relied on medical records and RN. Per RN, pt had 80% breakfast and 60% lunch today. Pt did not have c/o chewing/swallowing difficulty or GI distress. No BM was reported. RD Note (07/22/2020): Per pt's RN, pt had 25% intake today, and pt went under his blanket because he wanted to sleep. RN confirmed that last BM was on 07/20, and no BM was reported since. RN notified MD and lactulose was order, and it will be given today. Pt otherwise did not have c/o of another GI distress. Pt's BUN was increased possibly d/t PARTHA/CKD. Will monitor pt's renal function. Estimated Nutritional Needs Based on ideal body weight (84kg) Energy: 8561-3892 kcal/day (30-35 kcal/kg for respiratory distress, viral infection) Protein: 100-126 g/day (1.2-1.5 g/kg for respiratory distress, viral infection) Fluid: 6520-3607 mL/day (1 mL/kcal) Nutrition Diagnosis: 1. Increased energy and protein needs r/t viral infection a/e/b pt was admitted with respiratory distress and COVID. (ongoing) 2. Inadequate energy and protein intake r/t poor PO intake a/e/b pt average PO intake of 62% meeting < 75% estimated protein and energy needs. Intervention 1. Continue with cardiac diet as tolerate 2. Continue with ensure high protein BID for additional 320kcal and 32g protein. 3. Consider renal diet restriction if/when pt's PO intake improves upon follow up. 4. Encourage pt's PO and ONS intake to meet > 75% of estimated needs. Monitor/Evaluate Goal: PO intake at least 75% of estimated needs Monitor: PO intake, Labs, GI function, ONS intake F/U in 2-3 days as high risk 07/24-
[2020-07-22 16:12] VITALS: BP 124/34
--- NOTE | 2020-07-22 16:43 | NUR ---
PATIENT TITRATED DOWN FROM 12 LPM OXYMIZER TO 10LPM VIA OXYMIZER. O2 SAT 96%.
--- NOTE | 2020-07-22 17:38 | NUR ---
DR HOGAN MADE AWARE OF BUN /CR, AND K.PER DR HOGAN, HE WILL ORDER ANOTHER LOKELMA AND ORDER FLUIDS FOR TOMORROW .
--- NOTE | 2020-07-22 19:36 | NUR ---
RECIEVED PT FROM AM RN. CALLED INTO PTS ROOM, PT AWARE OF CHANGE OF SHIFT DOES NOT HAVE ANY CONCERNS AT THIS TIME. WILL FOLLOW UP WITH PM ASSESSMENT AND MEDS.
[2020-07-22 19:50] VITALS: BP 144/41
--- NOTE | 2020-07-22 21:25 | NUR ---
PT TOLERATED MEDICATIONS WELL. HELD BP MEDS DUE TO LOW DBP. PT AWARE. PT ON 10L OXM, DENIES SOB AT THIS TIME. PT HAS NO CONCERNS AT THIS TIME. CALL LIGHT IN REACH. GUARDS OUTSIDE ROOM. WILL CONTINUE TO MONITOR.
--- NOTE | 2020-07-23 04:46 | NUR ---
PT RESTING IN BED, NO CONCERNS AT THIS TIME. PT IS STABLE ON 10L OXM. PT DENIES SOB AT THIS TIME. CALL LIGHT IN REACH. WILL CONTINUE TO MONITOR.
[2020-07-23 05:32] VITALS: BP 151/41
--- NOTE | 2020-07-23 06:35 | NUR ---
PT REMAINED STABLE THROUGHOUT THE NIGHT. NO SIGNIFICANT CHANGES OVER NIGHT. ALL NEEDS WERE MET DURING THIS SHIFT. PT HAS NO CONCERNS AT THIS TIME. STILL ON 10L OXM, DENIES SOB. PT HAS CALL LIGHT IN REACH. GUARDS OUTSIDE ROOM. WILL ENDORSE ALL CARE TO AM RN. WILL CONTINUE TO MONITOR.
--- NOTE | 2020-07-23 07:20 | NUR ---
SEEN AOX4, NOT IN DISTRESS, TELE 9, SB, PALPABLE PULSES, NO EDEMA, DIMINISHED BLF, NO SOB, 10LPM VIA OXYMIZER , O2 SAT 97%, +BS, VOIDS FREELY, GENERALIZED WEAKNESS, SKIN DRY AND INTACT, NO PAIN AT THIS TIME, IV INTACT AND PATENT TABITHA, CALL LIGHT WITHIN REACH , BED AT LOWEST POSITION, SIDE RAILS UP.
[2020-07-23 07:31] LABS: BASOPHIL % 0 % (0-2); PLATELET COUNT 278 x10^3mcL (130-400); RED CELL DISTRIBUTION WIDTH 17.7 % (11.5-14.5)
[2020-07-23 07:36] LABS: ALKALINE PHOSPHATASE 78 U/L (46-116); ALT/SGPT 23 U/L (16-63); AST/SGOT 20 U/L (15-37); BILIRUBIN TOTAL 0.4 mg/dL (0.20-1.00); CALCIUM 8.2 mg/dL (8.5-10.1); CARBON DIOXIDE 23.3 mmol/L (21-32); CHLORIDE SERUM 106 mmol/L (98-107); CREATININE SERUM 1.2 mg/dL (0.7-1.3); GFR1 > 60 mL/min; GLUCOSE SERUM 88 mg/dL (74-106); PHOSPHOROUS 3.9 mg/dL (2.5-4.9); POTASSIUM SERUM 4.5 mmol/L (3.5-5.1); SODIUM SERUM 137 mmol/L (136-145); TOTAL PROTEIN, SERUM 6.5 g/dL (6.4-8.2)
[2020-07-23 08:01] VITALS: BP 136/39
--- NOTE | 2020-07-23 09:30 | NUR ---
PT STATED HE DOESN'T WANT ANY FURTHER O2 INTERVENTIONS. EDUCATED THE PT ON THE DIFFERENT TPES OF O2 NC DEVICES. PT AGREED REMAIN OXYIMZER
--- NOTE | 2020-07-23 09:45 | NUR ---
MEDICATIONS GIVEN PER EMAR
--- NOTE | 2020-07-23 14:00 | NUR ---
BP 137/68. HR 77. MEDICATIONS GIVEN PER EMAR.
--- NOTE | 2020-07-23 17:13 | NUR ---
SEEN AOX4, NOT IN DISTRESS, TELE 9 , SB, PALPABLE PULSES, NO EDEMA,DIMINISHED BLF, +BS, VOIDS FREELY, IV INTACT AND PATENT, NO REDNESS OR SWELLING,CALLLIGHT WITHIN REACH, BED AT LOWEST POSITION, SIDE RAILS UP.
[2020-07-23 17:24] VITALS: BP 138/40
--- NOTE | 2020-07-23 17:46 | NUR ---
PATIENT EATING DINNER, CALLED IN , PATIENT STATES HE IS OK.
--- NOTE | 2020-07-23 19:02 | NUR ---
RECIEVED PT FROM AM RN. NO SIGNIFICANT CHANGES DURING THE DAY. PT HAS BEEN STABLE, STILL ON 10L OXM. PT HAS NO CONCERNS, AWARE OF CHANGE OF SHIFT. WILL FOLLOW UP WITH PM ASSESSMENT AND MEDS.
[2020-07-23 20:24] VITALS: BP 138/36
--- NOTE | 2020-07-23 20:40 | NUR ---
ADMINISTERED LOVENOX 100MG SQ TO ABDOMEN, LIPITOR 40MG PO, AND COREG 12.5 MG PO. BP 144/42 (76) HR 65. NOT LETTING ME DOCUMENT THEM ON EMAR. WILL TRY AGAIN LATER. PT REFUSED CEPHULAC STATING "I DONT NEED IT I POOP". WILL REASSESS BP LATER FOR SCHEDULED ISORDIL AND APRESOLINE MEDICATIONS.
--- NOTE | 2020-07-23 20:46 | NUR ---
MEDS WERE ABLE TO BE SCANNED IN EMAR
--- NOTE | 2020-07-23 21:39 | NUR ---
CHECKED PTS BP. BP IS 132/33 (66). HELD 2200 BP MEDS.
--- NOTE | 2020-07-24 05:02 | NUR ---
PT IN BED RESTING, PT IS STABLE IN NO ACUTE DISTRESS. PT ON 10L OXM SATTING WELL, 97%. NO CONCERNS AT THIS TIME, GUARDS OUTSIDE ROOM. CALL LIGHT IN REACH, WILL CONTINUE TO MONITOR.
--- NOTE | 2020-07-24 05:32 | NUR ---
PTS BP IS 144/33 (70) HR 59. WILL HOLD AM BP MEDS.
[2020-07-24 06:08] VITALS: BP 144/33
--- NOTE | 2020-07-24 06:33 | NUR ---
PT RESTED WELL THROUGHOUT THE NIGHT, REMAINED STABLE. NO EPISODES OF ACUTE DISTRESS. PT STILL ON 10L OXM, DENIES SOB, SATTING WELL ALL THROUGHOUT THE SHIFT. ALL NEEDS WERE MET DURING THIS SHIFT, PT HAS NO CONCERNS AT THIS TIME. CALL LIGHT IN REACH, GUARDS OUTSIDE ROOM. WILL CONTINUE TO MONITOR. WILL ENDORSE ALL CARE TO AM RN.
--- NOTE | 2020-07-24 07:30 | NUR ---
RECEIVED PT FROM BRETT ESPARZA. PT IS AAOX4. PT ON TELE #9. PT DENIES CHEST PAIN AT THIS TIME. PT ON 10L OXYMIZER. O2 SAT 100%. PT DENIES SOB OR DISTRESS. IV TO TABITHA, CDI, PATENT, AND HEP LOCKED. ALL COMFORT AND SAFETY MEASURES IN PLACE. BED IN LOW POSITION, 2 SIDE RAILS UP. CALL LIGHT WITH IN REACH. NO PAIN OR DISCOMFORT AT THIS TIME. ALL QUESTIONS AND CONCERNS ADDRESSED. WILL CONTINUE TO MONITOR PT.
[2020-07-24 08:28] VITALS: BP 147/36
--- NOTE | 2020-07-24 09:15 | NUR ---
RECEIVED CALL FROM TELE MONITOR STATION, PT O2 SAT IN THE 70s. PT USING THE RESTROOM AT THIS TIME. PT RETURNED TO BED, 0XYMIZER 10L PLACE ON PT. PT O2 SAT 96%. ALL COMFORT AND SAFETY MEASURES IN PLACE. WILL CONTINUE TO MONITOR PT.
[2020-07-24 12:29] VITALS: BP 145/37
--- NOTE | 2020-07-24 13:05 | NUR ---
DR CUI MADE AWARE OF BUN 85, ALB 2.0. ALL QUESTIONS AND CONCERNS ADDRESSED. WILL CONTINUE TO MONITOR PT.
--- NOTE | 2020-07-24 13:10 | NUR ---
PT REMAINS STABLE WITH NO ACUTE CHANGES TO STATUS. WILL CONTINUE TO MONITOR PT.
--- NOTE | 2020-07-24 15:31 | NUR ---
Follow-up Nutrition Assessment: 226B JING, DENIS 69M Dx: COVID, PNA, NSTEMI PMHx: HTN, CVA PSHx: none noted Labs: (07/23) WBC 13H, H/H 12.3/38L, BUN 85H, Cr WNL, albumin 2L, phos WNL (07/22) WBC 13.1H, HCT 41L, K 5.5H, BUN 96H, Cr 1.4H, albumin 2.2L *phosphorus WNL (07/17) WBC 15.6H, H/H 12.9/39L, BUN 88H, Cr 1.6H, Albumin 2.4L, (07/16) Phosphorus 5.1H, Mg 3.1H, (07/13) CRP 8.2H, Trig 212H, HDL 32L Meds: Apresoline, Aspirin, Cephulac, Colace, Coreg, Decadron, Florinef, Isordil, Lipitor, Lovenox, Nitrostat, Phenergan, Tylenol Diet: Cardiac diet PO Intake: 40-95% x 12 meals with average PO intake of 62% since admission. *No flowsheet updated. Pt PO intake trending up since admission. Wt: 102.965kg/227lbs BMI: 29.9 Edema: No edema noted Last BM: 07/24 Skin: no open wound noted Alex: [address] note (07/22), Per pt's RN, pt had 25% intake today, and pt went under his blanket because he wanted to sleep. RN confirmed that last BM was on 07/20, and no BM was reported since. RN notified MD and lactulose was order, and it will be given today. Pt otherwise did not have c/o of another GI distress. Pt's BUN was increased possibly d/t PARTHA/CKD. Will monitor pt's renal function. RD Note (07/24/2020): Per bed huddle meeting on (07/24), pt is DNR and on 10L high FIo2. RD was not able to reach pt via his bedside phone, but RN was able to connect with pt via intercom system. Pt reported having 100% of breakfast and lunch today, and pt also reported drinking his ensure. Additionally, pt mentioned that he was able to tolerate his diet with no chewing/swallowing difficulty. Estimated Nutritional Needs Based on ideal body weight (84kg) Energy: 0503-7819 kcal/day (30-35 kcal/kg for respiratory distress, viral infection) Protein: 100-126 g/day (1.2-1.5 g/kg for respiratory distress, viral infection) Fluid: 3591-1258 mL/day (1 mL/kcal) Nutrition Diagnosis: 1. Increased energy and protein needs r/t viral infection a/e/b pt was admitted with respiratory distress and COVID. (ongoing) 2. Inadequate energy and protein intake r/t poor PO intake a/e/b pt average PO intake of 62% meeting < 75% estimated protein and energy needs. (ongoing) - per pt, his PO intake has improved and drinking ensure high pro. Intervention 1. Continue with cardiac diet as tolerate 2. Continue with ensure high protein BID for additional 320kcal and 32g protein. 3. Consider renal diet restriction if/when pt's PO intake improves upon follow up. 4. Continue to Encourage pt's PO and ONS intake to meet > 75% of estimated needs. Monitor/Evaluate Goal: PO intake at least 75% of estimated needs Monitor: PO intake, Labs, GI function, ONS intake F/U in 2-3 days as high risk 07/26-
[2020-07-24 16:57] VITALS: BP 133/38
--- NOTE | 2020-07-24 19:40 | NUR ---
REPORT GIVEN TO CHRISTY ESPARZA. PT REMAINED STABLE W/ NO ACUTE CHANGES TO STATUS. ALL QUESTIONS AND CONCERNS ADDRESSED. ALL CARES ENDORSED.
--- NOTE | 2020-07-24 21:00 | NUR ---
Awake and verbally responsive. No respiratory distress noted on 02 oxymizer 8L. Denies pain. Denies n/v. Encouraged prone position while in bed. Verbalized understanding. Will cont.to monitor. Call light within reach.
[2020-07-24 21:40] VITALS: BP 157/45
--- NOTE | 2020-07-25 04:33 | NUR ---
Afebrile. No significant change in condition noted. No SOB. Remained on oxymizer 8L. Sating 96%. Droplet/contact isolation, proper use of PPE and good hand hygiene observed.
[2020-07-25 05:46] VITALS: BP 160/47
--- NOTE | 2020-07-25 07:50 | NUR ---
PT RECEIVED FROM LIVESTOCK BROKER RN. PT IS SLEEPING THIS TIME, AROUSABLE TO VERBAL STIMULI. A/Ox4. NO COMPLAINS OF ANY PAIN OR SOB THIS TIME. REMINDED TO USE INCENTIVE SPIROMETER EVERY 1 HOUR. LEFT ANKLE RESTRAINT ATTACHED TO FOOT OF BED. PT INSTRUCTED TO USE CALL LIGHT IF ASSISTANCE IS NEEDED. SAFETY PRECAUTIONS IN PLACE. WILL CONTINUE TO MONITOR.
[2020-07-25 08:33] LABS: CALCIUM 8.6 mg/dL (8.5-10.1); CARBON DIOXIDE 23.8 mmol/L (21-32); CHLORIDE SERUM 105 mmol/L (98-107); CREATININE SERUM 1.1 mg/dL (0.7-1.3); GFR1 > 60 mL/min; GLUCOSE SERUM 94 mg/dL (74-106); POTASSIUM SERUM 5.3 mmol/L (3.5-5.1); SODIUM SERUM 135 mmol/L (136-145)
[2020-07-25 08:38] LABS: BILIRUBIN TOTAL 0.38 mg/dL (0.20-1.00); CHLORIDE SERUM 106 mmol/L (98-107); GFR1 > 60 mL/min; SODIUM SERUM 136 mmol/L (136-145)
[2020-07-25 08:41] LABS: ALKALINE PHOSPHATASE 73 U/L (46-116); ALT/SGPT 26 U/L (16-63); AST/SGOT 29 U/L (15-37); CALCIUM 8.3 mg/dL (8.5-10.1); GLUCOSE SERUM 92 mg/dL (74-106); POTASSIUM SERUM 5.5 mmol/L (3.5-5.1)
[2020-07-25 08:42] LABS: ALBUMIN 2.1 g/dL (3.4-5.0); TOTAL PROTEIN, SERUM 5.6 g/dL (6.4-8.2)
[2020-07-25 08:48] LABS: BASOPHIL % 0.1 % (0-2); PLATELET COUNT 268 x10^3mcL (130-400); RED CELL DISTRIBUTION WIDTH 16.6 % (11.5-14.5)
[2020-07-25 09:12] VITALS: BP 149/40
--- NOTE | 2020-07-25 10:15 | NUR ---
PT IS AWAKE, COMFORTABLE. DENIES ANY PAIN AND SOB. TOLERATING OXYMIZER 8L WELL, SPO2 100%. SAFETY PRECAUTIONS IN PLACE. WILL CONTINUE TO MONITOR.
--- NOTE | 2020-07-25 12:15 | NUR ---
PT IS RELAXED. DENIES ANY PAIN AND SOB THIS TIME. VS STABLE. SAFETY PRECAUTIONS IN PLACE. WILL CONTINUE TO MONITOR.
[2020-07-25 12:43] VITALS: BP 135/40
--- NOTE | 2020-07-25 14:15 | NUR ---
PT IS SLEEPING, THIS TIME. NO SIGNS OF PAIN AND SOB. VS STABLE. SAFETY PRECAUTIONS IN PLACE. WILL CONTINUE TO MONITOR.
--- NOTE | 2020-07-25 16:00 | NUR ---
PT IS SLEEPING, AROUSABLE TO VERBAL STIMULI. DENIES ANY PAIN AND SOB. LOKELMA ADMINISTERED PER DOCTOR'S ORDER BECAUSE OF HIGH POTASSIUM(5.5). SAFETY PRECAUTIONS IN PLACE. WILL CONTINUE TO MONITOR.
[2020-07-25 17:24] VITALS: BP 132/38
--- NOTE | 2020-07-25 17:39 | NUR ---
PT IS SLEEPING AT THIS TIME, RELAXED. VS STABLE. 2 CIM OFFICERS ARE PRESENT OUTSIDE THE ROOM. SAFETY PRECAUTIONS IN PLACE. WILL CONTINUE TO MONITOR.
--- NOTE | 2020-07-25 19:40 | NUR ---
RECEIVED PT FROM DAYSGAFT NURSE. PT IS AAOX4, DENIES HEADACHE/NAUSEA/DIZZINESS. PT IS TELE #9, NSR, DENIES CHEST PAIN. PULSES ARE EQUAL BILATERALLY, NO EDEMA NOTED, ON LOVENOX SQ PROPHYLAXIS. PT HAS BILATERAL DIMINISHED BASES, ON 8L OXYMIZER, DENIES SOB, NO ACUTE DISTRESS NOTED. ABDOMEN IS SOFT AND ROUND, NO PAIN UPON PALPATION. NORMOACTIVE X4 QUADRANTS, LAST BM 07/24. PT HAS URINAL AT BEDSIDE, VOIDS FREELY. GENERALIZED WEAKNESS NOTED, SHACKLE TO LEFT ANKLE. SKIN IS DRY AND INTACT, NO LESIONS NOTED. PT DENIES PAIN. PT HAS IV TO TABITHA, SITE INTACT, NO REDNESS OR SWELLING NOTED. PT IS CIM. CALM AND COOPERATIVE WITH STAFF. ALL SAFETY MEASURES IN PLACE. BED IN LOWEST POSITION, CALL LIGHT WITHIN REACH. WILL CONTINUE TO MONITOR.
[2020-07-25 20:41] VITALS: BP 141/70
--- NOTE | 2020-07-25 22:58 | NUR ---
PT REFUSED LACTULOSE, EDUCATED PATIENT ON BENEFITS OF MEDICATION. WILL ENDORSE .TO DAYSHIFT NURSE TO COMMUNICATE WITH DOCTOR UPON ROUNDS
--- NOTE | 2020-07-25 23:39 | NUR ---
PT NOW ON 6L OXYMIZER, TOLERATING WELL, SPO2 98%. ALL SAFETY MEASURES IN PLACE, BED IN LOWEST POSITION, CALL LIGHT WITHIN REACH.
--- NOTE | 2020-07-26 02:26 | NUR ---
WEANED PATIENT DOWN TO 4L OXYMIZER, SPO2 97%. PT DENIES SOB, NO ACUTE DISTRESS NOTED. ALL SAFETY MEASURES IN PLACE, BED IN LOW POSITION, CALL LIGHT WITHIN REACH.
[2020-07-26 05:12] VITALS: BP 110/60
--- NOTE | 2020-07-26 05:51 | NUR ---
PATIENT RESTED INTERMITTENTLY THROUGHOUT THE NIGHT. PT IS NOW ON 4L OXYMIZER, SPO2 93%, DENIES SOB. PT DENIES ANY FORM OF PAIN AT THIS TIME. COMMUNICATED WITH GUARDS TO HAVE SHACKLE MOVE TO RIGHT ANKLE. ALL SAFETY MEASURES IN PLACE. BED IN LOWEST POSITION, CALL LIGHT WITHIN REACH.
--- NOTE | 2020-07-26 07:15 | NUR ---
RECEIVED PT FROM WING ESPARZA. PT IS AAOX4. PT ON TELE #9. PT DENIES CHEST PAIN AT THIS TIME. PT ON 4L OXYMIZER. O2 SAT 100%. PT DENIES SOB OR DISTRESS. IV TO TABITHA, CDI, PATENT, AND HEP LOCKED. ALL COMFORT AND SAFETY MEASURES IN PLACE. BED IN LOW POSITION, 2 SIDE RAILS UP. CALL LIGHT WITH IN REACH. NO PAIN OR DISCOMFORT AT THIS TIME. ALL QUESTIONS AND CONCERNS ADDRESSED. WILL CONTINUE TO MONITOR PT.
--- NOTE | 2020-07-26 07:19 | NUR ---
ENDORSED CARE TO DAYSHIFT NURSE. ALL QUESTIONS/CONCERNS ADDRESSED.
[2020-07-26 07:23] LABS: CALCIUM 8.7 mg/dL (8.5-10.1); CARBON DIOXIDE 23.3 mmol/L (21-32); CHLORIDE SERUM 106 mmol/L (98-107); CREATININE SERUM 1.2 mg/dL (0.7-1.3); GFR1 > 60 mL/min; GLUCOSE SERUM 122 mg/dL (74-106); POTASSIUM SERUM 5.3 mmol/L (3.5-5.1); SODIUM SERUM 135 mmol/L (136-145)
[2020-07-26 07:26] LABS: PLATELET COUNT 250 x10^3mcL (130-400)
[2020-07-26 07:43] LABS: BASOPHIL % 0 % (0-2); RED CELL DISTRIBUTION WIDTH 16.8 % (11.5-14.5)
[2020-07-26 09:45] VITALS: BP 127/31
--- NOTE | 2020-07-26 11:20 | NUR ---
DR CUI NOTIFIED ABOUT BUN 101. DR CUI STATED OKAY TO KEEP LOVENOX HELD. ALL QUESTIONS AND CONCERNS ADDRESSED. WILL CONTINUE TO MONITOR PT.
--- NOTE | 2020-07-26 11:30 | NUR ---
Follow-up Nutrition Assessment: Dx: COVID, PNA, NSTEMI PMHx: HTN, CVA PSHx: none noted Labs: (07/26) Na 135 L, K 5.3 H, Glu 122 H, BUN 76, Cr 1.2, WBC 15.3 H, H/H 7.5/22 (07/23) WBC 13H, H/H 12.3/38L, BUN 85H, Cr WNL, albumin 2L, phos WNL (07/22) WBC 13.1H, HCT 41L, K 5.5H, BUN 96H, Cr 1.4H, albumin 2.2L *phosphorus WNL (07/17) WBC 15.6H, H/H 12.9/39L, BUN 88H, Cr 1.6H, Albumin 2.4L, (07/16) Phosphorus 5.1H, Mg 3.1H, (07/13) CRP 8.2H, Trig 212H, HDL 32L Meds: aspirin, cephuliac, Colace, coreg, Lipitor, lokelma, Phenergan, Tylenol, ventolin Diet: Cardiac diet PO Intake: 50% x 2 meals on 07/25. No other records since last RDN assessment. Wt: 102.965kg/227lbs BMI: 29.9 Edema: No edema noted Last BM: 07/23/20 Skin: no open wound noted Alex: [address] (07/22), Per pt's RN, pt had 25% intake today, and pt went under his blanket because he wanted to sleep. RN confirmed that last BM was on 07/20, and no BM was reported since. RN notified MD and lactulose was order, and it will be given today. Pt otherwise did not have c/o of another GI distress. Pt's BUN was increased possibly d/t PARTHA/CKD. Will monitor pt's renal function. Per RD Note (07/24/2020): Per bed huddle meeting on (07/24), pt is DNR and on 10L high FIo2. RD was not able to reach pt via his bedside phone, but RN was able to connect with pt via intercom system. Pt reported having 100% of breakfast and lunch today, and pt also reported drinking his ensure. Additionally, pt mentioned that he was able to tolerate his diet with no chewing/swallowing difficulty. RDN Note (07/26): Pt has some SOB per physician progress note. Pt continues on O2, weaning. Pt continues with good PO intakes. No GI distress. Estimated Nutritional Needs Based on ideal body weight (84kg) Energy: 5928-5466 kcal/day (30-35 kcal/kg for respiratory distress, viral infection) Protein: 100-126 g/day (1.2-1.5 g/kg for respiratory distress, viral infection) Fluid: 0648-2486 mL/day (1 mL/kcal) Nutrition Diagnosis: 1. Increased energy and protein needs r/t viral infection a/e/b pt was admitted with respiratory distress and COVID. (ongoing) 2. Inadequate energy and protein intake r/t poor PO intake a/e/b pt average PO intake of 62% meeting < 75% estimated protein and energy needs. (ongoing) Intervention 1. Continue with cardiac diet as tolerated 2. Continue with ensure high protein BID for additional 320kcal and 32g protein. 3. Continue to Encourage pt's PO and ONS intake to meet > 75% of estimated needs. Monitor/Evaluate Goal: PO intake at least 75% of estimated needs Monitor: PO intake, Labs, GI function, ONS intake F/U in 2-3 days as high risk (07/28-07/29)
[2020-07-26 12:37] VITALS: BP 113/34
[2020-07-26 15:53] VITALS: BP 109/43
--- NOTE | 2020-07-26 17:30 | NUR ---
RECEIVED CALL FROM TELE MONITOR STATION. PT 02 SAT IN THE 70s. PT FOUND ON BEDSIDE COMMODE. PT STATING HE IS SHORT OF BREATHE. NASAL CANNULA FOUND DISCONNECTED FROM OXYGEN AND NC ON THE FLOOR. NC PLACED ON PT. PT O2 SAT 77-79%. RT PAGED. PT NC PLACED AT 4L. RT ROSA ARRIVED. PT PLACED ON 12L OXYMIZER. O2 SAT 92%. RT VERIFIED PT'S WISHES TO REMAIN DNR. PT CONFIRMED. RT EDUCATING PT ON NEXT STEP OF OXYGEN THERAPY IF OXYMIZER IS INEFFECTIVE. PT VERBALIZED UNDERSTANDING OF BIPAP AND STATED OKAY TO USE BIPAP IF NEEDED. PT ENCOURAGED TO LAY IN PRONE POSITION, PT REFUSED. PT EDUCATED ON IMPORTANCE OF LYING PRONE. PT REFUSING AT THIS TIME. ALL QUESTIONS AND CONCERNS ADDRESSED. ALL NEEDS MET AT THIS TIME. WILL CONTINUE TO MONITOR PT.
--- NOTE | 2020-07-26 19:30 | NUR ---
REPORT GIVEN TO REESE ESPARZA. PT REMAINED STABLE THROUGHOUT MY SHIFT. ALL QUESTIONS AND CONCERNS ADDRESSED. ALL NEEDS MET AT THIS TIME. ALL CARES ENDORSED.
--- NOTE | 2020-07-26 19:40 | NUR ---
RECEIVED PT IN BED AWAKE RESTING COMFORTABLY. A/O0 X3, ABLE TO MAKE FOLLOW COMMANDS, ABLE TO MAKE NEEDS KNOWN, SPEECH CLR, NO C/O GARY OR DIZZINESS. LUNG SOUNDS DIMINISHED BILATERALLY, ON 12L OXYMIZER, SPO2 100%, RADIAL AND PEDAL PULSES PRESENT, NO EDEMA NOTED. PT ON TELE #9, NSR, NO C/O CHEST PAIN. ABD ROUND AND SOFT, NO C/O NVD. PT VOIDS FREELY, NO DISCOMFORT REPORTED. SKIN IS WARM, DRY AND INTACT, IV SITE TO THE TABITHA PATENT AND FLUSHING WELL, SALINE LOCKED. PT CIM, SHACKLES ON THE LEFT ANKLE NOTED. BED TO LOWEST POSITION, CALL LIGHT WITHIN REACH, WILL CONT TO MONITOR FOR CHANGES IN CONDITION.
--- NOTE | 2020-07-26 20:22 | NUR ---
CALLED DR. CUI REGARDING LOVENOX DOSE, RECEIVED ORDER TO HOLD LOVENOX DUE TO INCREASE BUN FOR TONIGHT AND RESUME USUAL SCHEDULE TOMMOROW. UPDATED ALSO REGARDING HGB/HCT LEVEL AND STATUS OF OB.
[2020-07-26 22:01] VITALS: BP 117/35
--- NOTE | 2020-07-27 01:30 | NUR ---
PT IN BED RESTING COMFRTABLY WITH EYES CLOSED, NO C/O PAIN, NO ACUTE DISTRESS NOTED. RESP IS EVEN AND UNLABORED, CONT ON 12L OXYMIZER SPO2 99%,BED TO LOWEST POSITON CALL LIGHT WITHIN REACH, WILL CONT TO MONIOTR FOR POSSIBLE CHANGES.
--- NOTE | 2020-07-27 05:30 | NUR ---
PT HAD EPISODE OF DESATURATION AFTER BEING PROVIDED AM CARE BY THE TIMBER BUYER, O2 SAT 84-88% ON 12L OXYMIZER. OXYMIZER INCREASED TO 14L, SPO2 IMPROVED AT 94-98%. WILL CONT TO MONITOR PT. CALL LIGHT WITHIN REACH.
[2020-07-27 05:43] VITALS: BP 125/43
--- NOTE | 2020-07-27 06:40 | NUR ---
PT REMAINED STABLE, RESP IS EVEN AND UNLABORED, ON 14L OXYMIZER, SPO2 99%. NO C/O PAIN, NO ACUTE DISTRESS NOTED. WILL ENDORSE CARE TO AM SHIFT NURSE.
--- NOTE | 2020-07-27 07:13 | NUR ---
REPORT TAKEN FROM HIDE COOKING OPERATOR NURSE AT THE NURSE STATION TO REDUCE EXPOSURE TO COVID 19. PER REPORT PATIENT IS ALERT AND ORIENTED X 4, ON 14 LITERS OF OXYGEN VIA OXYMIZER. PATIENT IS REPORTED TO BE INCONTINENT OF STOOL. WILL CONTINUE TO MONITOR.
[2020-07-27 08:12] VITALS: BP 140/55
[2020-07-27 09:26] LABS: PLATELET COUNT 228 x10^3mcL (130-400)
[2020-07-27 09:32] LABS: CALCIUM 8.5 mg/dL (8.5-10.1); CARBON DIOXIDE 21.7 mmol/L (21-32); CREATININE SERUM 1.6 mg/dL (0.7-1.3); POTASSIUM SERUM 5.3 mmol/L (3.5-5.1)
--- NOTE | 2020-07-27 09:38 | NUR ---
LAB REPORTS H ADN H OF 6.[address]PO[address] CUI AT THIS TIME AND HE IS AWARE. NO NEW ORDERS AT THIS TIME. PATIENT REPORT FEELING "OK". NO ACUTE DISTRESS
--- NOTE | 2020-07-27 11:47 | NUR ---
SIGNIFICANT ECCHYMOSIS FOUND TO RIGHT POSTERIOR UPPER ARM.
[2020-07-27 12:08] VITALS: BP 121/52
--- NOTE | 2020-07-27 12:12 | NUR ---
IV TO RIGHT ARM PATENT, BUT PATIENT DOES REPORTS MILD PAIN WITH FLUSH THOUGH NO RESISTANCE IS FELT. ATTEMPTED TO PLACE A NEW IV LINE BUT NO SITE COULD BE FOUND, CHARGE NURSE ALSO UNABLE TO FIND NEW IV SITE. WILL CONTINUE TO MONITOR FOR BLEEDING.
[2020-07-27 14:04] LABS: MONOCYTE 4 % (0-7); SEGMENTED NEUTROPHILS 84 % (37-75); rbc morphology (normal/abnorm) ABNORMAL (NORMAL)
--- NOTE | 2020-07-27 14:40 | NUR ---
PATIENT HAD BOWEL MOVEMENT IN BED, CHANGED AT THIS TIME, FECES FOUND TO BE BLACK TAR COLERED. PROVIDER PAGED.
[2020-07-27 14:51] LABS: IRON 94 ug/dL (65-170)
[2020-07-27 14:56] LABS: TOTAL IRON BINDING CAPACITY 244 ug/dL (250-450)
[2020-07-27 16:17] VITALS: BP 149/38
--- NOTE | 2020-07-27 19:27 | NUR ---
PATIENT TOLERATED BLOOD TRANSFUSION WELL, NO ADVERSE REACTIONS, VITALS WNL PRE, AT 15MIN AND POST. REPORT GIVEN TO OFFICE AUTOMATION CLERK NURSE, CARE ENDORSED.
--- NOTE | 2020-07-27 19:45 | NUR ---
EYES CLOSED, EASILY AWAKENED. ORIENTED TO NAME, PLACE, TIME. SOMEWHAT LETHARGIC.IV SITE TO RIGHT UPPER ARM FLUSHED WELL. DRESSING CDI. ON 14LPM OF O2 VIA OXYMIZER. O2 SAT 95%. PER REPORT, PT HAD 2 EPISODES OF BLACK TARRY STOOL TODAY, DR. SANABRIA AWARE PER DAY SHIFT NURSE. RECEIVED 1 UNIT PRBC THIS AFTERNOON. LOVENOX ON HOLD. CIM INMATE. FURNITURE SHAMPOOER CAME INTO ROOM WITH NURSE. REINFORCED NEED TO USE CALL LIGHT TO CALL FOR ASSISTANCE, PLACED WITHIN EASY REACH. HOB ELEVATED 20 DEG. BED IN LOWEST POSITION.
--- NOTE | 2020-07-27 20:31 | NUR ---
PLAN OF CARE DISCUSSED WITH PT. VERBALIZED UNDERSTANDING. CONTINUES TO BE ON 14LPM OF O2 VIA OXYMIZER, O2 SAT 100%
[2020-07-27 20:39] VITALS: BP 161/44
--- NOTE | 2020-07-27 20:58 | NUR ---
RESP THERAPIST LOWERED OXYMIZER TO 12LPM, O2 SAT NOTED TO BE 99% AT THIS TIME.
--- NOTE | 2020-07-27 21:33 | NUR ---
BP 115/30, WA 78. HELD DUE ISORDIL AND APRESOLINE. PT EYES CLOSED, EASILY AWAKENED. SINUS RHYTHM ON TELE. NOTED GOWN SOMEWHAT WET. OFFERED TO CHANGE GOWN, PT REFUSED AT THIS TIME.
[2020-07-27 22:31] VITALS: BP 125/27
--- NOTE | 2020-07-27 22:34 | NUR ---
BP 125/27, MAP 60. CALLED DR. CUI. HE ORDERED 500ML NS IV BOLUS ONCE.
--- NOTE | 2020-07-27 22:51 | NUR ---
STARTED ORDERED BOLUS OF NS 500ML. RESP THERAPIST REDUCED TO 8LPM VIA OXYMIZER, O2 SAT 96% AT THIS TIME.
[2020-07-28 00:36] VITALS: BP 125/37
--- NOTE | 2020-07-28 00:37 | NUR ---
BOLUS COMPLETED, BP 125/37, MAP 66. O2 SAT 98% ON 8LPM OF O2 VIA OXYMIZER
--- NOTE | 2020-07-28 05:44 | NUR ---
resp therapist reduced o2 to 6lpm via oxymizer. o2 sat 96%.
[2020-07-28 05:56] VITALS: BP 101/65
--- NOTE | 2020-07-28 07:06 | NUR ---
O2 SAT 96% ON 6LPM OF O2 VIA OXYMIZER. LATEST BP 101/65, OR 74, SALINE LOCKS TO RIGHT UPPER ARM AND LEFT FOREARM FREE FROM REDNESS OR SWELLING. KEPT ON DROPLET ISOLATION. ENDORSED TO NURSE BREEN
--- NOTE | 2020-07-28 08:00 | NUR ---
RECEIVED THIS AM AWAKE, APPEARS VERY LETHARGIC. FOLLOW COMMANDS. IN NO ACUTE RESP. DISTRESS. ON OXYMIZER 6L SATS 99%. BP 131/35, COREG HELD THIS AM. PT REFUSED LACTULOSE. HL PATENT. NO C/O PAIN OR DISCOMFORT AT THIS TIME. CIM GUARDS AT THE DOOR. CALL LIGHT WITHIN REACH. WILL CONTINUE WITH PLAN OF CARE.
[2020-07-28 08:22] LABS: CARBON DIOXIDE 22.2 mmol/L (21-32); CREATININE SERUM 1.9 mg/dL (0.7-1.3); POTASSIUM SERUM 5.3 mmol/L (3.5-5.1)
[2020-07-28 08:31] LABS: PLATELET COUNT 216 x10^3mcL (130-400)
[2020-07-28 08:33] VITALS: BP 144/35
[2020-07-28 08:33] LABS: RED CELL DISTRIBUTION WIDTH 16.7 % (11.5-14.5)
--- NOTE | 2020-07-28 08:59 | NUR ---
DR. CUI NOTIFIED OF ELEVETED WBC OF 25 AND H/H 5.8/18. SEE ORDERS.
--- NOTE | 2020-07-28 11:55 | NUR ---
PT WENT FOR CT SCAN ABD. ABD BACK IN ROOM, IVF BOLUS INFUSING AT THIS TIME.
--- NOTE | 2020-07-28 11:57 | NUR ---
PT HAD LARGE SOFT/BLACK STOOL X1, PERICARE DONE.
[2020-07-28 12:51] VITALS: BP 136/35
[2020-07-28 13:25] LABS: MONOCYTE 8 % (0-7); SEGMENTED NEUTROPHILS 80 % (37-75); rbc morphology (normal/abnorm) ABNORMAL (NORMAL)
[2020-07-28 13:45] LABS: microscopic required? NO
[2020-07-28 14:41] LABS: urine erythrocyte NEGATIVE (NEGATIVE)
--- NOTE | 2020-07-28 15:53 | NUR ---
Follow-up Nutrition Assessment: 226B JING, DENIS 69M Dx: COVID, PNA, NSTEMI PMHx: HTN, CVA PSHx: none noted Labs: (07/28) WBC 25.0H, H/H 5.8/18L, K 5.3H, BUN 150H, Cr 1.9H, BG 113H, (07/27) TIBC 244L (07/26) WBC 15.3 H, H/H 7.5/22, Na 135 L, K 5.3 H, Glu 122 H, BUN 76, Cr 1.2, (07/23) WBC 13H, H/H 12.3/38L, BUN 85H, Cr WNL, albumin 2L, phos WNL Meds: Senokot, cephulac, Coreg, Protonix, Carafate, Lipitor, Tylenol, Isordil Diet: Cardiac diet PO Intake: No entry since last visit Wt: 102.965kg/227lbs BMI: 29.9 Edema: none noted Last BM: 07/28, per RN, pt has large bowel movement. Black tarry stool reported on 07/27. Skin: large discoloration to left side of ABD, and posterior right upper arm Alex: [address] note (07/26), Pt has some SOB per physician progress note. Pt continues on O2, weaning. Pt continues with good PO intakes. No GI distresses. RD Note (07/28/2020): Per progress note (07/27) pt's hemoglobin dropped from 10.4 to 7.5, stool occult blood positive. Per pt's primary RN, pt was not eating, and his appetite was terrible. At the moment, pt was only drinking ensure high protein, and pt reported just not wanting to eat. Additionally, RN also reported that pt had a large BM today, and 2 units of blood was transfused d/t low hemoglobin possibly induced by GI bleed. Estimated Nutritional Needs Based on ideal body weight (84kg) Energy: 7359-1576 kcal/day (30-35 kcal/kg for respiratory distress, viral infection) Protein: 100-126 g/day (1.2-1.5 g/kg for respiratory distress, viral infection) Fluid: 8709-1895 mL/day (1 mL/kcal) Nutrition Diagnosis: 1. Increased energy and protein needs r/t viral infection a/e/b pt was admitted with respiratory distress and COVID. (ongoing) 2. Inadequate energy and protein intake r/t poor PO intake a/e/b pt average PO intake of 62% meeting < 75% estimated protein and energy needs. (ongoing) 3. Altered GI function r/t GI bleed a/e/b pt has possible GI bleed and black, tarry stool was reported. (new) Intervention 1. Continue with cardiac diet as tolerated 2. Continue with ensure high protein BID for additional 320kcal and 32g protein. 3. Recommend consider parenteral nutrition as source of nutrition if GI tract was not accessible d/t GI bleed. Monitor/Evaluate Goal: PO intake at least 75% of estimated needs Monitor: PO intake, Labs, GI function, ONS intake F/U in 2-3 days as high risk 07/30-
--- NOTE | 2020-07-28 15:56 | NUR ---
LATE ENTRY FOR 1326: CALLED TO PICC RN PLUS [phone] REGARDING PATIENT NEEDS PICC LINE JAYDEN DUE TO POOR VENOUS ACCESS, NURSE CHARLES WILL CALL [facility] BACK FOR ETA.
--- NOTE | 2020-07-28 15:59 | NUR ---
RECEIVED CALL BACK FROM PICC LINE NURSE, MELVIN, HE REQUESTED TO HAVE NEPHRO.CLEARANCE BEFORE PICC LINE INSERTION DUE TO HIGH BUN/CR.
--- NOTE | 2020-07-28 16:16 | NUR ---
CALLED TO [employer]ER,DR.HLA SABRINA HOGAN'S OFFICE, AWAITING DOCTOR TO CALL BACK FOR CLEARANCE.
--- NOTE | 2020-07-28 16:41 | NUR ---
RECEIVED CALL BACK DR. MALCOLM HOGAN, MADE AWARE OF BUN/CR. 150/1.9, K+ 5.3. PER DOCTOR, OKAY TO HAVE PICC LINE PLACEMENT. PICC LINE NURSE MELVIN NOTIFED.
--- NOTE | 2020-07-28 16:53 | NUR ---
TRIED TO INSERT PERIPHERAL IV LINE FOR TRANSFUSION BUT UNSUCCESSFUL. WAITING FOR PICC LINE NURSE.
[2020-07-28 17:03] VITALS: BP 148/41
--- NOTE | 2020-07-28 17:47 | NUR ---
CONSENT FOR PICC LINE INSERTION SIGNED. WAITING FOR PICC LINE NURSE.
--- NOTE | 2020-07-28 19:07 | NUR ---
REMAINS IN NO ACUTE RESP. DISTRESS. AWAKE AND ALERT, FOLLOWS COMMANDS NOT LETHARGIC MUCH THIS PM.BP 139/41. NO C/O PAIN OR DISCOMFORT. CIM GUARDS AT THE DOOR. CALL LIGHT WITHIN REACH AND SAFETY MEASURES IN PLACE. WILL BE ENDORSED TO INCOMING SHIFT.
--- NOTE | 2020-07-28 19:34 | NUR ---
EYES CLOSED, EASILY AWAKENED. APPEARS LETHARGIC. HOB ELEVATED 30 DEG. ON 6LPM OF O2 VIA OXYMIZER, O2 SAT 99%. LUNG SOUNDS DIMINISHED. APPEARS PALE. FLUSHED SALINE LOCK TO LEFT AC, FLUSHED WELL. NOTED ORDER FOR PICC LINE PLACEMENT, NOTED SIGNED CONSENT IN CHART. AWAITING PICC LINE NURSE WHO PER REPORT, IS ALREADY COMING TO PLACE PICC LINE. SINUS RHYTHM ON TELE. CALL LIGHT WITHIN EASY REACH. CORRECTIONAL OFFICERS CAME INTO ROOM WITH NURSE.
[2020-07-28 21:00] VITALS: BP 156/33
--- NOTE | 2020-07-28 21:21 | NUR ---
PERIPHERAL LINE TO LEFT FOREARM FLUSHED WELL, GOOD BLOOD RETURN. DANILO AQUINO ALSO CHECKED PERIPHERAL LINE AND VERIFIED IV IS PATENT. 2099H - PRE TRANSFUSION VITAL SIGNS. T 97.1F, AK 78, BP 156/33, RR 18, O2 SAT 95% ON 6LPM OF O2 VIA OXYMIZER. PT AND PRBC UNIT #[id number] VERIFIED WITH NURSE POSEY. 2102H - STARTED INFUSION OF PRBC AT SLOW RATE OF 60ML/HR PER. 2117H - VITAL SIGNS TAKEN, TEMP 97.5F, AK 72, RR 18, BP 156/44, O2 SAT 98%. NO TRANSFUSION REACTIONS NOTED. INCREASED TRANSFUSION RATE TO 110ML/HR.
--- NOTE | 2020-07-28 21:43 | NUR ---
PICC LINE NURSE HERE TO PLACE PICC LINE. TIME OUT DONE. CALLED RADIOLOGY TO INFORM THEM WILL BE CALLING FOR STAT CXR TO CONFIRM PICC LINE PLACEMENT.
--- NOTE | 2020-07-28 21:58 | NUR ---
PICC LINE NURSE STATED TO CALL RADIOLOGY. CALLED RADIOLOGY, SPOKE WITH CLAIRE. PRBC INFUSING WELL, IV SITE FREE FROM REDNESS, SWELLING, OR PAIN. CONTINUING TRANSFUSION AT 110ML/HR.
--- NOTE | 2020-07-28 22:20 | NUR ---
PICC LINE NURSE PLACED PICC LINE TO RIGHT UPPER ARM. ELECTRIC METER TESTER TOOK CXR.
--- NOTE | 2020-07-28 22:47 | NUR ---
TRANSFERRED INFUSION OF PRBC TO PICC LINE TO RIGHT UPPER ARM. IV SITE TO LEFT FOREARM FLUSHED WITH NS, FLUSHED WELL, NO SWELLING OR REDNESS. REMOVED PERIPHERAL LINE TO RIGHT UPPER ARM. CONTINUING PRBC INFUSION AT 110ML/HR. O2 SAT 96% ON 6LPM OF O2 VIA OXYMIZER. SINUS RHYTHM ON TELE, HR 90/MIN. DENIES HAVING PAIN. ABLE TO MAKE NEEDS KNOWN.
[2020-07-29] VITALS (7 sets, daily range): BP systolic 105–156; BP diastolic 32–72
--- NOTE | 2020-07-29 00:16 | NUR ---
1ST UNIT PRBC COMPLETELY TRANSFUSED. NO TRANSFUSION REACTIONS NOTED. VITAL SIGNS T 96.7F, MA 73, BP 152/33, RR18, O2 SAT 99%. FLUSHED PURPLE PORT OF PICC LINE WITH 10ML NS, FLUSHED WELL.
--- NOTE | 2020-07-29 00:53 | NUR ---
NO TRANSFUSION REACTIONS NOTED. VITAL SIGNS T97.4, TX 73, BP 132/27, RR 18, O2 SAT 100%. INCREASED TRANSFUSION RATE TO 110ML/HR. TRANSFUSION IS THROUGH PURPLE PORT OF PICC LINE.
--- NOTE | 2020-07-29 00:57 | NUR ---
0035H - PRE-TRANSFUSION VITAL SIGNS; T97.1, PA 74, BP 126/39, RR 18, O2 SAT 99% ON 6LPM OF O2 VIA OXYMIZER. PT AND PRBC UNIT #[id number] VERIFIED WITH DANILO AQUINO. 0038H - STARTED 2ND UNIT OF PRBC AT SLOW RATE OF 60ML/HR PER FACILITY PROTOCOL.
--- NOTE | 2020-07-29 01:46 | NUR ---
AWAKE AND ALERT. ASKED FOR WATER PROVIDED. PRBC INFUSING WELL AT 11ML/HR.
--- NOTE | 2020-07-29 02:52 | NUR ---
EYES CLOSED, BREATHING EVEN AND UNLABORED. PRBC INFUSING WELL. CALL LIGHT WITHIN EASY REACH
--- NOTE | 2020-07-29 04:06 | NUR ---
COMPLETED TRANSFUSING 2ND UNIT PRBC. NO TRANSFUSION REACTIONS NOTED. EYES CLOSED, EASILY AWAKENED. BREATHING EVEN AND UNLABORED ON 6LPM OF O2 VIA OXYMIZER. VITAL SIGNS: T 96.7F, OR 78, BP 156/57, RR 18, O2 SAT 96%. PICC LINE FLUSHED WELL WITH NS.
--- NOTE | 2020-07-29 06:29 | NUR ---
PASSED STOOL, BLACK, TARRY. HYGIENE NEEDS ATTENDED TO. GOWN AND LINEN CHANGED, ASSISTED BY SVETA SANTOS. PT EASILY AWAKENED. BREATHING EVEN AND UNLABORED ON 6LPM OF O2 VIA OXYMIZER, SINUS RHYTHM ON TELE, HR 67/MIN. BOTH PORTS OF PICC LINE FLUSHED WELL. HOB ELEVATED 20 DEG. PERIPHERAL SALINE LOCK TO LEFT UPPER ARM FREE FROM SWELLING OR REDNESS. KEPT ON DROPLET ISOLATION.
--- NOTE | 2020-07-29 07:14 | NUR ---
IN NO ACUTE DISTRESS. O2 SAT 99%. ENDORSED TO NURSE ELDER AND ARTHUR
--- NOTE | 2020-07-29 07:35 | NUR ---
RECEIVED PATIENT RESTING IN BED, APPEARS COMFORTABLE. AA0 TIMES 2. DENIES PAIN. DENIES CARDIAC DISCOMFORT. ON 5L VIA OPTIMIZER, RESPIRATIONS EVEN AND UNLABORED, NO SOB. TELE #45, SR. GENERALIZED WEAKNESS. TABITHA PICC AND LFA 22G, CDI, PATENT. CALL LIGHT IN REACH, SAFETY MEASURES IN PLACE.
[2020-07-29 07:45] LABS: PLATELET COUNT 179 x10^3mcL (130-400)
[2020-07-29 07:58] LABS: CALCIUM 8.1 mg/dL (8.5-10.1); CARBON DIOXIDE 22.1 mmol/L (21-32); CREATININE SERUM 1.5 mg/dL (0.7-1.3); POTASSIUM SERUM 4.8 mmol/L (3.5-5.1)
[2020-07-29 08:06] LABS: RED CELL DISTRIBUTION WIDTH 16.1 % (11.5-14.5)
[2020-07-29 10:51] LABS: BAND NEUTROPHIL 3 % (0-10); BASOPHIL 0 % (0-2); METAMYELOCTE 3 % (0-2); MONOCYTE 7 % (0-7); MYELOCYTE 2 % (0-2); SEGMENTED NEUTROPHILS 80 % (37-75)
[2020-07-29 10:53] LABS: ovalocyte/elliptocyte 1+; rbc morphology (normal/abnorm) ABNORMAL (NORMAL)
[2020-07-29 10:55] LABS: PLATELET MORPHOLOGY PLATELETS NORMAL
--- NOTE | 2020-07-29 12:44 | NUR ---
1115- PATIENT HAD SMALL AMOUNT OF PREVIOUSLY LIQUID DRIED BLACK STOOL, ADMINISTERED FLEET ENEMA PER MD ORDER. INSTRUCTED PATIENT TO HOLD FLEET ENEMA IN LONG POSSIBLE. 1244- PATIENT HAD ONE XL BM-BLACK TARRY STOOL
--- NOTE | 2020-07-29 18:08 | NUR ---
PATIENT RESTING IN BED, DENIES PAIN OR DISTRESS. PATIENT IS ON 5L O2 VIA OPTIMIZER, RESPIRATIONS EVEN AND UNLABORED. NO SOB. DENIES PAIN OR DISCOMFORT. CALL LIGHT IN REACH, SAFETY MEASURES IN PLACE. WILL ENDORSE CARE TO ONCOMING RN.
--- NOTE | 2020-07-29 18:15 | NUR ---
NURSING CO-SIGN THE DOCUMENTATION ENTERED BY THE IP HAS BEEN REVIEWED. REVIEWED/CO-SIGNED BY: Rafaela Smith RN DOCUMENTATION DONE BY: DEMETRIUS LOVE RN.
--- NOTE | 2020-07-29 18:52 | NUR ---
PATIENT HAD 1 LARGE BM-SOFT BLACK TARRY STOOL.
--- NOTE | 2020-07-29 20:00 | NUR ---
PT A/A/O X3. DENIES DIZZINESS AND HEADACHE. BREATH SOUNDS DIMINISHED WANDA LUNGS. BREATHING EVEN AND UNLABORED ON 5L OXYMIZER. SPO2 97%. DENIES CHEST PAIN AND PRESSURE. BOWEL SOUNDS ACTIVE. NO C/O N/V AND ABD PAIN. ECCHYMOSIS NOTED ON RIGHT UPPER EXTREMITY. PICC LINE NOTED ON THE RIGHT UPPER EXTREMITY INFUSING WITH D5 1/2 NS AT 50 ML/HR ON THE PURPLE PORT. IV SALINE LOCK NOTED ON THE LEFT FOREARM. MADE PT COMFORTABLE. PLACED CALL LIGHT WITH IN REACH. WILL CONTINUE TO MONITOR.
--- NOTE | 2020-07-30 00:12 | NUR ---
PT RESTING WITH EYES CLOSED. NO DISTRESS AND DISCOMFORT NOTED. WILL CONTINUE TO MONITOR.
[2020-07-30 06:00] VITALS: BP 159/40
--- NOTE | 2020-07-30 06:59 | NUR ---
PT QUIET AND RESTING. PT DOES NOT WANT TO BE CHANGED THUS FAR. PT STATED "MAYBE LATER.". DENIES DISCOMFORT AND PAIN THUS FAR. PICC LINE INTACT AND INFUSING ORDERED. MADE PT COMFORTABLE. WILL ENDORSE TO THE AM NURSE ACCORDINGLY.
[2020-07-30 07:00] LABS: PLATELET COUNT 139 x10^3mcL (130-400)
[2020-07-30 07:52] LABS: BASOPHIL % 0 % (0-2); RED CELL DISTRIBUTION WIDTH 16.3 % (11.5-14.5)
[2020-07-30 08:11] LABS: ALBUMIN 1.8 g/dL (3.4-5.0); ALKALINE PHOSPHATASE 53 U/L (46-116); ALT/SGPT 25 U/L (16-63); AST/SGOT 21 U/L (15-37); BILIRUBIN TOTAL 0.3 mg/dL (0.20-1.00); CALCIUM 7.8 mg/dL (8.5-10.1); CALCIUM 7.9 mg/dL (8.5-10.1); CARBON DIOXIDE 23.9 mmol/L (21-32); CARBON DIOXIDE 24.1 mmol/L (21-32); CHLORIDE SERUM 110 mmol/L (98-107); CREATININE SERUM 1.2 mg/dL (0.7-1.3); GFR1 > 60 mL/min; GLUCOSE SERUM 97 mg/dL (74-106); GLUCOSE SERUM 99 mg/dL (74-106); PHOSPHOROUS 2.5 mg/dL (2.5-4.9); POTASSIUM SERUM 4.3 mmol/L (3.5-5.1); SODIUM SERUM 141 mmol/L (136-145); TOTAL PROTEIN, SERUM 4.4 g/dL (6.4-8.2)
--- NOTE | 2020-07-30 08:23 | NUR ---
REPORTED H&H 6.[address] CUI, RECEIVED N/O FOR 2 UNITS PRBC'S.
[2020-07-30 08:30] VITALS: BP 125/31
--- NOTE | 2020-07-30 12:19 | NUR ---
1150 STARTED INFUSION OF 1UNIT PRBS'S VIA PICC ON TABITHA, VITAL SIGNS: T98.1, PULSE 78, BP 135/33, RR 22, 02 96% ON 5L VIA OXYMIZER. 1205 PATIENT RESTING COMFORTABLY, V/S: T97.9, PULSE 76, BP 126/29, RR 22, 02 96% ON 5L VIA OXYMIZER.
[2020-07-30 12:45] VITALS: BP 124/26
--- NOTE | 2020-07-30 13:30 | NUR ---
PATIENT RESTING COMFORTABLY IN BED, DENIES PAIN OR DISCOMFORT. 1UNIT PRBC'S INFUSING TO TABITHA PICC AT 130ML/HR. BED IN LOW POSITION, CALL LIGHT IN REACH. WILL CONTINUE TO MONITOR.
[2020-07-30 13:34] LABS: rbc morphology (normal/abnorm) ABNORMAL (NORMAL)
--- NOTE | 2020-07-30 15:15 | NUR ---
COMPLETED INFUSION 1 UNIT PRBC'S, NO ADVERSE REACTIONS NOTED. SAFETY MEASURES IN PLACE.
--- NOTE | 2020-07-30 16:14 | NUR ---
Follow-up Nutrition Assessment: 226 B JING, DENIS 69M HR Dx: COVID, PNA, NSTEMI PMHx: HTN, CVA PSHx: none noted Labs: (07/30) CL 110H, BUN 84.0H, CA 7.9L, ALK 53, WBC 13.9H, RBC 1.93L, H/H 6.0L/18L, NEUT% 83.6H, LYMPH% 5.8L (07/28) WBC 25.0H, H/H 5.8L/18L, K 5.3L, BUN 150H, CR 1.9H, BG 113H, (07/27) TIBC 244L Meds: Protonix, Carafate, Lipitor, Apresoline, Coreg, Ferric Sodium, Cephulac Diet: Cardiac diet PO Intake: (07/21) B: 95%, L: 85%, D: 85%, (07/22) B: 100%, (07/25) B: 50%, L: 50%, (07/26) B: 10%, L: 70%, (07/29) B: 65%, Average 67% x 9 meals Weights: (07/30) 102.96kg, (07/28) 102.96kg/227lbs Edema: no noted Last BM: 07/29 Skin: ecchymosis on TABITHA and L ABD Alex: [address] note (07/28) Per progress note (07/27) pt's hemoglobin dropped from 10.4 to 7.5, stool occult blood positive. Per pt's primary RN, pt was not eating, and his appetite was terrible. At the moment, pt was only drinking ensure high protein, and pt reported just not wanting to eat. Additionally, RN also reported that pt had a large BM today, and 2 units of blood was transfused d/t low hemoglobin possibly induce by GI bleed. RD Note (07/30): Per progress note (07/30) denies chills, denies night sweats, denies fatigue, denies malaise, denies decreased appetite. Pt no seen d/t COVID +, Per pt's RN, pt continues tolerating his food and eating about 50% of his meals. Furthermore, pt has been drinking his Ensure at lunch (160 kcal and 16 g protein), but his RN did not know if pt has been drinking it at breakfast. Although, per RN, pt knows that he needs to drink it. Pt's RN stated that pt had a black BM yesterday, and he was getting another two blood transfusions today. RN denied pt's N/V/C. Additionally, according to average 67% PO intake of current diet, pt is consuming 69% of kcal needs and 83% of protein needs. Estimated Nutritional Needs Based on ideal body weight (84 kg) Energy: 2520 - 2940 kcal/day (30 - 35 kcal/kg for respiratory distress, viral infection) Protein: 100 - 126 g/day (1.2 - 1.5 g/kg for respiratory distress, viral infection) Fluid: 2520 - 2940 mL/day (1 mL/kcal) Nutrition Diagnosis: 1. Increased energy and protein needs r/t viral infection a/e/b pt was admitted with respiratory distress and COVID. (ongoing). 2. Inadequate energy intake r/t poor PO intake a/e/b pt average PO intake of 67% meeting <75% estimated energy needs. (modified, ongoing). Pt PO intake meeting 83% of estimated energy needs. 3. Altered GI function r/t GI bleed a/e/b pt has possible GI bleed and black, tarry stool was reported. (ongoing). Intervention: 1. Continue with Cardia diet as tolerated. 2. Continue with ensure high protein BID for additional 320 kcal and 32 g protein. 3. Recommend encourage pt PO intake to meet >75% of estimated needs. 4. Recommend consider parenteral nutrition as source of nutrition if GI tract was not accessible d/t GI bleed. Monitor/Evaluate: Goal: PO intake at least 75% of estimated needs (no met, ongoing goal) Monitor: PO intake, Labs, GI function, OSN intake F/U in 2-3 days as high risk 08/01-
[2020-07-30 17:00] VITALS: BP 143/39
--- NOTE | 2020-07-30 18:12 | NUR ---
1550 STARTED INFUSION OF 2ND UNIT OF PRBC'S, VITAL SIGNS: T98.4, PULSE 73, BP 124/33, RR23, O298%. WILL CONTINUE TO MONITOR.
--- NOTE | 2020-07-30 18:26 | NUR ---
2 UNITS OF PRBC'S TRANSFUSION COMPLETED. NOTIFIED DR. CUI AND ASKED IF HE WOULD LIKE F/U CBCMD STATED OKAY TO WAIT UNTIL AM LAB DRAW.
--- NOTE | 2020-07-30 19:45 | NUR ---
REPORT FROM DEMETRIUS ESPARZA. AXOX2. LETHARGIC. NO S/S OF DISTRESS. PATIENT BREATHING EVEN AND UNLABORED ON 5L NC. 96% SPO2. TELE 45 NO REPORTS FROM MONITORS SR AT THIS TIME. GEN WEAKNESS. LFA CDI, PICC TABITHA. BOWEL SOUND HYPOACTIVE. TABITHA AND L ABD BRUISES. WARM DRY SKIN. NO BREAK DOWN. STRONG RADIAL AND PEDAL PULSES. LEFT ANKLE SECURED + PULSE STRONG, GOOD CIRCULATION. PATIENT CIM. PATIENT VOIDS FREELY IN URINAL AT BEDSIDE. JAYDA URINE 300ML OUT DURING FIRAT ASSESSMENT. BED IN LOW POSITION, SIDE RAILS UPX2, CALL LIGHT WITHIN REACH. COVID POSITIVE, DROPLET PRECAUTIONS. WILL CONTINUE TO MONITOR PATIENT AND OFFER SUPPORT.
[2020-07-30 21:03] VITALS: BP 137/29
--- NOTE | 2020-07-30 21:27 | NUR ---
UNABLE TO GIVE PATIENT CARDIAC AND BLOO PRESSURE MEDICATIONS BP 137/29
--- NOTE | 2020-07-30 23:52 | NUR ---
PT RESTING, EYES OPEN NO S/S OF DISTRESS OR DISCOMFORT. PATIENT DENIES PAIN. PATIENT BREATHING EVEN AND UNLABORED ON 5L NS SPO2 97% TELE 45 SR NO REPORTS FROM MONITORS. L ANKLE SECURED, STRONG PEDAL PULSE GOOD CIRCULATION. NO CP. BED IN LOW POSITION, SIDE RAIL UPX2, CALL LIGHT WITHIN REACH. WILL CONTNIUE TO MONITOR PATIENT AND OFFER SUPPORT.
[2020-07-31 05:58] VITALS: BP 142/41
--- NOTE | 2020-07-31 06:46 | NUR ---
PATIENT AXOX2 NAME AND PLACE. NO S/S OF DISTRESS OR DISCOMFORT. PATIENT BLOOD PRESSURE THIS MORNING 138/37. PATIENT ENCOURAGED TO KEEP NC IN. PT BREATHING EVEN AND UNLABORED ON 5LNC. 98% SPO2. 89 WITHIOUT NC. PATIENT IS FORGETFUL. L ANKLE HAS STRONG PEDAL PULSE, GOOD CIRCULATION WHILE SECURED. BED IN LOW POSITION, SIDE RAIL UPX2 CALL LIGHT WITHIN REACH.
[2020-07-31 06:51] VITALS: BP 138/37
--- NOTE | 2020-07-31 07:10 | NUR ---
RECEIVED PT FROM MAT MAN RN. AOX2, ORIENTED TO NAME AND PLACE, APPEARS LETHARGIC, DENIES GARY/DIZZINESS. TELE 45 SR. PERIPHERAL PULSES PALPABLE. LUNG DIMINISHED AT BASES, ON 5L NC 02 SAT 98, PT NOTED TO HAVE NC OFF, REPLACED AND REMINDED TO KEEP IT ON. ABDOMEN SOFT/ROUND, NO TENDERNESS, DENIES N/V/D, BOWEL SOUNDS ACTIVE. VOID USING URINAL, INCONTINENT AT TIMES. GENERALIZED WEAKNESS. NO C/O PAIN. PICC LINE TO TABITHA IN PLACE, CDI, NO REDNESS OR SWELLING NOTED. JESSICA LIGHT IN REACH, WILL CONTINUE TO MONITOR.
[2020-07-31 07:43] LABS: CALCIUM 7.4 mg/dL (8.5-10.1); CARBON DIOXIDE 20.5 mmol/L (21-32); CHLORIDE SERUM 108 mmol/L (98-107); CREATININE SERUM 1.1 mg/dL (0.7-1.3); GFR1 > 60 mL/min; GLUCOSE SERUM 96 mg/dL (74-106); POTASSIUM SERUM 4.1 mmol/L (3.5-5.1); SODIUM SERUM 137 mmol/L (136-145)
[2020-07-31 07:46] LABS: BASOPHIL % 0.1 % (0-2)
--- NOTE | 2020-07-31 07:52 | NUR ---
DIETITIAN CO-SIGN The Nutrition Notes documented by the Customer Account Specialist have been reviewed. Reviewed/Co-Signed by: Sheng Lee Documentation Done by: Edwige Valencia
[2020-07-31 08:11] VITALS: BP 153/41
[2020-07-31 08:16] LABS: PLATELET COUNT 121 x10^3mcL (130-400); RED CELL DISTRIBUTION WIDTH 15.2 % (11.5-14.5)
[2020-07-31 13:08] VITALS: BP 129/38
--- NOTE | 2020-07-31 14:37 | NUR ---
PT CONTINUES ON 2L NC, O2 98%. NO SOB/COUGH OR DISTRESS NOTED.
[2020-07-31 17:28] VITALS: BP 125/60
--- NOTE | 2020-07-31 18:00 | NUR ---
PT ON RA, O2 SAT 95%, PT DENIES SOB/COUGH
--- NOTE | 2020-07-31 18:57 | NUR ---
REMOVED IV TO LFA DUE TO LEAKING.
--- NOTE | 2020-07-31 19:33 | NUR ---
PT RECIEVED AWAKE ALERT AND RESPONSIVE VERBALLY,PT KNOWS NAME AND AGE,REG RESP NO SOB IN R/A SAT 96% HOB,ABDO IS SOFT WITH ACTIVE BOWEL SOUNDS,HOB,PT ON TELE MONITOR AND IN NSR NO ECTOPY OR CHEST PAIN AT THIS TIME,KEPT CLEAN AND DRY TO TOUCH,BED IN THE LOW POSITION AND LOCKED,CALL LIGHT EASY REACHED AND WILL CONTINUE TO MONITOR.
[2020-07-31 20:11] VITALS: BP 131/40
--- NOTE | 2020-08-01 03:11 | NUR ---
PT RESTING AT THIS TIME,AND WILL CONTINUE TO MONITOR.
[2020-08-01 06:04] VITALS: BP 106/37
[2020-08-01 06:44] LABS: CALCIUM 7.3 mg/dL (8.5-10.1); CARBON DIOXIDE 20.8 mmol/L (21-32); CHLORIDE SERUM 109 mmol/L (98-107); GLUCOSE SERUM 93 mg/dL (74-106); SODIUM SERUM 139 mmol/L (136-145)
[2020-08-01 06:52] LABS: BASOPHIL % 0 % (0-2); PLATELET COUNT 110 x10^3mcL (130-400); RED CELL DISTRIBUTION WIDTH 15.5 % (11.5-14.5)
--- NOTE | 2020-08-01 07:15 | NUR ---
PT IS AAOX4, SUDANESE SPEAKING, SOME NORTHERN IRISH. TELE [address] READING NSR. RESP EVEN, SHALLOW, WITH SOB, RR 35. NO COUGH NOTED. ABDOMEN SOFT, ROUND, NONTENDER, NONDISTENDED. BOWEL SOUNDS ACTIVE X4 QUADS. DENIES N/V, DIARRHEA. C/O CONSTIPATION. LAST BM ON 07/29 WITH BLACK TARRY STOOL NOTED. DISTAL PULSES MODERATELY PALPABLE, SKIN WARM, NO EDEMA. SKIN CDI. WITH TABITHA AND L ABDOMEN ECCYMOSIS. IVF D5 1/2 NS AT 30ML/HOUR RUNNING TO TABITHA PICC WITH TWO LUMENS FLUSHED AND PATENT. NO S/S OF SWELLING OR ERYTHEMA. DRESSING CDI. PT DENIES PAIN. CALL LIGHT WITHIN REACH. BED IN LOWEST POSITION. DROPLET PRECAUTIONS MAINTAINED. 2 GUARDS AT DOOR ON ONE TO ONE SUPERVISION. WILL CONTINUE TO MONITOR.
[2020-08-01 08:30] VITALS: BP 139/41
--- NOTE | 2020-08-01 08:30 | NUR ---
SCHEDULED MEDS GIVEN AND TOLERATED WELL. B/P 139/37 (71), HR 72. PT GIVEN BED BATH AND ASSISTED TO BEDSIDE CHAIR. BED LINED AND GOWN CHANGED. PT SITTING IN BEDSIDE CHAIR FOR BREAKFAST, TOLERATING ACTIVITY WITH NOTED SOB AND EXERTION. O2 N/C AT 2LPM PLACED ON PT. O2 SAT 96%. CALL LIGHT WITHIN REACH.
--- NOTE | 2020-08-01 08:35 | NUR ---
SCHEDULED MEDS GIVEN AND TOLERATED WELL. B/P 139/41 (73), HR 72. PT GIVEN BED BATH AND ASSISTED TO BEDSIDE CHAIR. BED LINED AND GOWN CHANGED. PT SITTING IN BEDSIDE CHAIR FOR BREAKFAST, TOLERATING ACTIVITY WITH NOTED SOB AND EXERTION. O2 N/C AT 2LPM PLACED ON PT. O2 SAT 96%. CALL LIGHT WITHIN REACH.
--- NOTE | 2020-08-01 09:25 | NUR ---
PT ASSISTED BACK TO BED, O2 N/C REMOVED. PT ON R/A WITH O2 SATURATION AT 93%. NO COUGH OR SOB NOTED. CALL LIGHT WITHIN REACH.
--- NOTE | 2020-08-01 10:07 | NUR ---
SCHEDULED LACTULOSE PO GIVEN AND TOLERATED WELL. RESP EVEN AND UNLABORED. ON R/A. NO RESP DISTRESS NOTED. DENIES PAIN.
--- NOTE | 2020-08-01 12:30 | NUR ---
PT ASSISTED OOB TO BEDSIDE CHAIR FOR LUNCH. PT DESATURATED TO 88% ON R/A. O2 N/C APPLIED TO PT AT 2LPM. O2 SAT NOW 98%. WILL CONTINUE TO MONITOR.
--- NOTE | 2020-08-01 13:10 | NUR ---
PT COMPLETED 75% OF BREAKFAST AND 95% OF LUNCH. PT ASSISTED BACK TO BED. N/C AT 2LPM REMOVED. PT O2 SAT AT 94% ON R/A. NO RESP DISTRESS NOTED. CALL LIGHT WITHIN REACH.
[2020-08-01 13:30] VITALS: BP 138/38
--- NOTE | 2020-08-01 14:09 | NUR ---
SCHEDULED MED APRESOLINE HELD, PT'S B/P 138/38. HR 72. PT DENIES PAIN. O2 SAT AT 96% R/A. PT RR AT 32. CALL LIGHT WITHIN REACH.
--- NOTE | 2020-08-01 16:17 | NUR ---
RECEIVED PATIENT FROM VILMA DUNBAR. PATIENT CURRENTLY WITH PT OSIRIS FOR EVAL AND SESSION. WILL SPEAK WITH PATIENT AFTER PT SESSION.
[2020-08-01 18:19] VITALS: BP 145/45
--- NOTE | 2020-08-01 19:12 | NUR ---
P.T. NOTES P.T. EVAL COMPLETED; O2 SAT ROOM AIR=83%, 3L=93%, RN NOTIFIED; ENDORSED TO NURSING.
[2020-08-01 19:20] VITALS: BP 129/43
--- NOTE | 2020-08-01 19:20 | NUR ---
RECEIVED PT AWAKE ALERT AND VERBALLY RESPONSIVE IN LAO.BREATHING EASY AND NON-LABORED.TOLERATING ROOMAIR @ 94%.DIMINISHED BREATHSOUNDS.NO COUGHING/CONGESTION NOTED.DENIES CHESTPAIN.BP 129/43 MMHG,HR 78.ON DROPLET PRECAUTION FOR COVID+.WILL OBSERVE PROTOCOL.GUARDS OUTSIDE THE DOOR.WILL CONTINUE TO MONITOR.
--- NOTE | 2020-08-02 04:44 | NUR ---
PT SLEPT WELL ALL NIGHT WITH GUARDS OUTSIDE THE DOOR.BREATHING EASY AND NON-LABORED.TOLERATED ROOMAIR ALL NIGHT.DENIES ABDOMINAL PAIN ALL NIGHT.REMAINS ON DROPLET PRECAUTION FOR COVID+.GOODHANDWASHING TECHNIQUE OBSERVED.ALL NEEDS MET.WILL CONTINUE TO MONITOR.
[2020-08-02 05:26] VITALS: BP 129/45
[2020-08-02 06:32] LABS: BASOPHIL % 0.1 % (0-2)
[2020-08-02 07:10] LABS: RED CELL DISTRIBUTION WIDTH 16.9 % (11.5-14.5)
[2020-08-02 07:11] LABS: PLATELET COUNT 111 x10^3mcL (130-400)
[2020-08-02 07:15] LABS: ALKALINE PHOSPHATASE 65 U/L (46-116); ALT/SGPT 26 U/L (16-63); AST/SGOT 22 U/L (15-37); CALCIUM 7.3 mg/dL (8.5-10.1); CHLORIDE SERUM 110 mmol/L (98-107); CREATININE SERUM 0.8 mg/dL (0.7-1.3); GLUCOSE SERUM 95 mg/dL (74-106); SODIUM SERUM 139 mmol/L (136-145)
--- NOTE | 2020-08-02 07:19 | NUR ---
RECEIVED PT FROM PM NURSE. PT IS AWAKE AND RESTING COMFORTABLY AT THIS TIME. NO FACIAL DISTRESS OR SOB NOTED. PT IS A/OX4. ETHIOPIAN SPEAKING. ABLE TO MAKE NEEDS KNOWN. DENIES GARY/DIZZINESS. LUNG SOUNDS CTA. BREATHING E/U ON RA. TELE #45. DENIES CP/PRESSURE. PALPABLE PULSES. NO EDEMA NOTED. ACTIVE BSX4. ABD SOFT AND ROUND. DENIES N/V/D. VOIDS FREELY. URINAL BY BEDSIDE. AMBULATORY. ECCHYMOSIS NOTED TO ABD. NO C/O PAIN AT THIS TIME. PICC LINE NOTED TO TABITHA WITH 2 PORTS. FLUSHED WITH NO DIFFICULTY. BED AT LOWEST POSITION. CALL BUTTON WITHIN REACH. GUARDS AT BEDSIDE. WILL CONTINUE TO MONITOR.
[2020-08-02 07:21] LABS: ALBUMIN 1.6 g/dL (3.4-5.0); TOTAL PROTEIN, SERUM 4.8 g/dL (6.4-8.2)
[2020-08-02 08:51] VITALS: BP 130/38
--- NOTE | 2020-08-02 12:10 | NUR ---
Follow-up Nutrition Assessment: 226 B JING, DENIS 69M HR Dx: COVID, PNA, NSTEMI PMHx: HTN, CVA PSHx: none noted Labs: (08/02) RBC 2.46L, H/H 7.6/23L, PLT 111L, BUN 25H, CA 7.3L, ALB 1.6L (07/30) CL 110H, BUN 84.0H, CA 7.9L, ALK 53, WBC 13.9H, RBC 1.93L, H/H 6.0L/18L, NEUT% 83.6H, LYMPH% 5.8L (07/28) WBC 25.0H, H/H 5.8L/18L, K 5.3L, BUN 150H, CR 1.9H, BG 113H, (07/27) TIBC 244L Meds: Protonix, Carafate, Lipitor, Apresoline, Coreg, Ferric Sodium, Cephulac Diet: Regular diet PO Intake: (07/31) 70% (07/30)B: 70%, L: 65%, D: 60% (07/29) 65% Average 68% x >10 meals Weights: (07/30) 102.96kg, (07/28) 102.96kg/227lbs Edema: no noted Last BM: 07/29 Skin: ecchymosis on TABITHA and L ABD Alex: [address] (07/30): Per progress note (07/30) denies chills, denies night sweats, denies fatigue, denies malaise, denies decreased appetite. Pt no seen d/t COVID +, Per pt's RN, pt continues tolerating his food and eating about 50% of his meals. Furthermore, pt has been drinking his Ensure at lunch (160 kcal and 16 g protein), but his RN did not know if pt has been drinking it at breakfast. Although, per RN, pt knows that he needs to drink it. Pt's RN stated that pt had a black BM yesterday, and he was getting another two blood transfusions today. RN denied pt's N/V/C. Additionally, according to average 67% PO intake of current diet, pt is consuming 69% of kcal needs and 83% of protein needs. RD Note (08/02): Patient remains in iso precautions, covid unit. Per RN patient eating fairly, visualized breakfast about 50%., Flowsheet taken with average in take of 68% x 6 meals. Recent adjustment/liberalization of diet Regular. RN has not visualized pt drinking ONS, order for BID with meals. Otherwise per Progress note pt has no more gi bleeds, off abx, good bms. Hopes to wean off O2, will monitor. Estimated Nutritional Needs Based on ideal body weight (84 kg) Energy: 2520 - 2940 kcal/day (30 - 35 kcal/kg for respiratory distress, viral infection) Protein: 100 - 126 g/day (1.2 - 1.5 g/kg for respiratory distress, viral infection) Fluid: 2520 - 2940 mL/day (1 mL/kcal) Nutrition Diagnosis: 1. Increased energy and protein needs r/t viral infection a/e/b pt was admitted with respiratory distress and COVID. (ongoing). 2. Inadequate energy intake r/t poor PO intake a/e/b pt average PO intake of 67% meeting <75% estimated energy needs. (modified, ongoing). Pt PO intake meeting 83% of estimated energy needs. Intervention: 1. Continue with Regular diet to encourage PO intake. 2. Continue with ensure high protein BID for additional 320 kcal and 32 g protein. 3. Recommend encourage pt PO intake to meet >75% of estimated needs. Monitor/Evaluate: Goal: PO intake at least 75% of estimated needs (no met, ongoing goal) Monitor: PO intake, Labs, GI function, OSN intake F/U in 2-3 days as high risk 08/04-
[2020-08-02 13:13] VITALS: BP 125/38
[2020-08-02 14:10] VITALS: BP 125/38
--- NOTE | 2020-08-02 15:31 | NUR ---
SPOKE TO DR CIU FOR PERMISSION TO REMOVE PICC LINE A RN. DR CUI AGREES TO IT. NOTED AND CARRIED OUT AN ADDITIONAL ORDER.
--- NOTE | 2020-08-02 17:33 | NUR ---
DR CUI CALLED IN TO NURSES STATION STATING THAT [facility] CANNOT TAKE PATIENT BACK TODAY. STATES THEY WILL PICK HIM UP TOMORROW. UPDATED NURSE CLAYTON AND CHARGE NURSE KIRILL.
--- NOTE | 2020-08-02 18:02 | NUR ---
GUARDS REPORT TO INDUCTION HEATING EQUIPMENT SETTER PAT THAT PATIENT DID NOT EAT ANYTHING FOR LUNCH. WILL MONITOR FOR TONIGHT'S DINNER INTAKE.
--- NOTE | 2020-08-02 18:41 | NUR ---
DISCHARGE PAPERWORK HANDED OFF TO GUARDS. PICC LINE REMOVED. CATHETER INTACT. SITE HELD DOWN WITH PRESSURE FOR THREE MINUTES. NO ADDITIONAL BLEEDING NOTED. HEART MONITOR REMOVED AND HANDED OVER TO TUNNEL FORM PLACING SUPERVISOR. PATIENT LEFT HOSPITAL ALONG WITH GUARDS BACK TO FACILITY.
--- NOTE | 2020-08-02 18:58 | NUR ---
[facility] HAS ARRIVED TO [facility]AS[facility]ER PATIENT. INFORMED CREW THAT PATIENT WAS NOT SUPPOSED TO BE PICKED UP TODAY. CREW STATES "WE'RE SUPPOSED TO PICK HIM UP". BEGAN GETTING PATIENT READY FOR DISCHAGE, PICC LINE REMOVED. PATIENT NOW REFUSING TO GET INTO WHEELCHAIR AND COMPLAINING OF SOB. CALLED DR CUI AND MADE AWARE. DR CUI CONTINUES TO STATE THAT "THEY HAVE NO PLACE FOR HIM", AND TO JUST KEEP HIM UNTIL TOMORROW. CHARGE NURSE AWARE. ENDORSED TO PM NURSE URBAN.
--- NOTE | 2020-08-02 19:00 | NUR ---
DISCHARGE PAPERWORK HANDED OVER TO GUARDS. PICC LINE REMOVED. CATHETER INTACT. SITE HELD DOWN FOR THREE MINUTES. NO ADDITIONAL BLEEDING NOTED. HEART MONITOR REMOVED AND HANDED TO TECH MONITOR. PT IS SCHEDULED TO BE PICKED UP [place]. WILL ENDORSE CARE TO PM SHIFT.
[2020-08-02 19:30] VITALS: BP 161/42
--- NOTE | 2020-08-02 19:30 | NUR ---
RECEIVED PT ON BED ON HALF-WAY SUIT.INFORMED PT HELD DISCHARGE.PLACED A NEW GOWN.TELE # 27 PLACED WITH READING NSR.C/O SOB.O2 SAT INITIALLY @ 83%.PLACED ON O2 @ 2L/MIN AND O2 SAT WENT UP TO 91%.HOB KEPT ELEVATED.ENCOURAGED DEEP BREATHING EXERCISES.DENIES CHESTPAIN.BP 161/42 MMHG,HR 94.GUARDS AT BEDSIDE.ON DROPLET PRECAUTION FOR COVID+.WILL OBSERVE PROTOCOL.WILL CONTINUE TO MONITOR.
--- NOTE | 2020-08-03 04:54 | NUR ---
PT SLEPT WELL ALL NIGHT.BREATHING EASY AND NON-LABORED.DENIES SOB/DIFFICULTY BREATHING.O2 @ 2L/MIN VIA N/C.NO COUGHING/CONGESTION NOTED.GUARDS OUTSIDE THE ROOM.ON DROPLET PRECAUTION.GOODHANDWASHING TECHNIQUE OBSERVED.ALL NEEDS MET.WILL CONTINUE TO MONITOR.
[2020-08-03 05:45] VITALS: BP 128/39
[2020-08-03 07:33] LABS: CALCIUM 7.1 mg/dL (8.5-10.1); CARBON DIOXIDE 25.1 mmol/L (21-32); CHLORIDE SERUM 108 mmol/L (98-107); CREATININE SERUM 0.9 mg/dL (0.7-1.3); GLUCOSE SERUM 93 mg/dL (74-106); POTASSIUM SERUM 4.3 mmol/L (3.5-5.1); SODIUM SERUM 139 mmol/L (136-145)
[2020-08-03 07:41] LABS: BASOPHIL % 0.2 % (0-2)
[2020-08-03 07:49] LABS: PLATELET COUNT 127 x10^3mcL (130-400); RED CELL DISTRIBUTION WIDTH 17.5 % (11.5-14.5)
--- NOTE | 2020-08-03 08:00 | NUR ---
PATIENT RECIEVED ALERT AND ORIENTED TIMES FOUR. HE HAS BEEN AWAITING TRANSFER. GUARDS AT BEDSIDE AND SECURITY BENJI BEEN MAINTINED. THE 02 AT 2 LITERS VIA CANNULA AND TOELRATED WELL SO FAR. PATIENT ON BEDREST AND SEEMS DEPRESSED AND HAS VITALS AT THIS TIME AT 98.8, 134/43, 52 MAP, 18 RESPIRATIONS. PATIENTEATTING PORLY AND HAS BEEN ENCORUAGE TO EAT AND TAKE IN FLUIDS INDICATED. PATIENT HAS SOME TRACE EDEMA TO THE BILATERAL LEGS. THE PATIENT HAS BEEN ON MONITORING AND HE IS NSR ON THE MONITOR. PATIENT HAS HAD HIS PICC LINE REMOVED AND IS TO RETURN TO THE CORRECTION BUT AWAITNG AND CLINIC BED AT [facility]. PATIENT HAS BEEN NOTED TO BE LESS INTERESTED IN THE AND LUNGS ARE DIMINISHEDNAD SPARATIC WHEEZING HEARD AND SOME RALES BILTERAL AND HAS A DRY COUGH. HIS PULSES PALABLE TO THE EXTREMTIES AND SOME TRACE EDEMA TO THE LOWER EXTREMITES WELL. PATIENT HAS BEEN IN ISOLATION FOR THE COVID POSITIVE. HE HAS RECEIVED BLOOD AND AT THIS TIME HE HAS H AND H OF 7.8/23. PATIENT IS ON IRON IDNICATED. HE DENIES PAIN AT THIS TIME. AWAITING ORDER FOR TRANFSER BACK TO [facility]. GUARDS ARE AWARE THAT THER IS NO BED YET AVAILABLE. EEEEEEEEEEEEEEEEEEEEEEEEEEEEEETK
[2020-08-03 09:37] VITALS: BP 131/43
[2020-08-03 13:19] VITALS: BP 132/45
--- NOTE | 2020-08-03 13:20 | NUR ---
PATIENT HAD A LARGE BM OF BLACK TARRY STOOL. PATIENT HAS REFUSED THE LACTULOSE THIS AM AND HAS BEEN ON IRON FOR LOW GARY AND H. PATIEN GIVEN GOOD URSZULA CARE AND IS COMFORTLABEL AND STILL UP TO EAT LUNCH. WILL CONTINUE TO MONITOR. = Note Type Description
[2020-08-03 15:26] VITALS: BP 132/45
--- NOTE | 2020-08-03 16:30 | NUR ---
PATIENT AND GUARDS ADVISED OF PLAN FOR DISCHARGE AT 600PM. PATIENTS PACKET MADE AND PATIENT TO FOLLOW UP WITH [facility] DOCTOR AND TO GO TO CLINIC PER TRANSFER DUE TO HIS NEED FOR 02 AT THIS TIME.
[2020-08-03 18:39] VITALS: BP 158/49
== END 2020-08-03 18:41 | disposition other institution (70) | DRG 177 ==
LOC: ED 19:34 → DU 21:42
PROVIDERS: Emergency Medicine; Internal Medicine; Internal Medicine Gastroenterology; ADMIT Internal Medicine; ATTEND Internal Medicine
PROC: XW033E5 Introduction of Remdesivir Anti-infective into Peripheral Vein, Percutaneous Approach, New Technology Group 5 (ICD-10-PCS; principal; 2020-07-14)
PROC: XW13325 Transfusion of Convalescent Plasma (Nonautologous) into Peripheral Vein, Percutaneous Approach, New Technology Group 5 (ICD-10-PCS; 2020-07-14)
PROC: 30233N1 Transfusion of Nonautologous Red Blood Cells into Peripheral Vein, Percutaneous Approach (ICD-10-PCS; 2020-07-27)
PROC: 5A09357 Assistance with Respiratory Ventilation, Less than 24 Consecutive Hours, Continuous Positive Airway Pressure (ICD-10-PCS; 2020-07-28)
DX: U07.1 COVID-19 (principal); J96.01 Acute respiratory failure with hypoxia; I50.23 Acute on chronic systolic (congestive) heart failure; I21.A1 Myocardial infarction type 2; J12.89 Other viral pneumonia; N17.9 Acute kidney failure, unspecified; I13.0 Hypertensive heart and chronic kidney disease with heart failure and stage 1 through stage 4 chronic kidney disease, or unspecified chronic kidney disease; I42.9 Cardiomyopathy, unspecified; K92.2 Gastrointestinal hemorrhage, unspecified; D62 Acute posthemorrhagic anemia; I25.10 Atherosclerotic heart disease of native coronary artery without angina pectoris; N18.9 Chronic kidney disease, unspecified; E78.5 Hyperlipidemia, unspecified; E87.5 Hyperkalemia; D72.829 Elevated white blood cell count, unspecified; N13.9 Obstructive and reflux uropathy, unspecified; I35.1 Nonrheumatic aortic (valve) insufficiency; Z86.73 Personal history of transient ischemic attack (TIA), and cerebral infarction without residual deficits; Z85.46 Personal history of malignant neoplasm of prostate; Z79.899 Other long term (current) drug therapy; Z79.82 Long term (current) use of aspirin
CPT/HCPCS: 36600; 83880; 85378; 87804; 94150; C9113; G0378; J0456; J0696; J1650; J1940; J2916; J2920; J3535; J7040; J7042; J7050; J7060; J8540; P9016; P9047; Q0092; Q0163; U0003-CS